=== PATIENT | female | born 1950 | race Caucasian/White ===

== ENCOUNTER → 2018-07-11 | Outpatient (CLI) | payer MEDICARE, OTHER ==
[~2018-07-11] MED LIST: HYDR-3870 PO; NITR-65 PO; PHEN-640 PO; TAMS0.4C98 PO
--- NOTE | 2018-07-11 17:10 | Diagnostic Imaging Report ---
INDICATION: Right flank pain and left ureteral stone. TIME OF EXAM: 2:20 PM No prior studies are available for comparison. FINDINGS: Calcific density overlies the mid left renal shadow measuring 6 mm. No radiopaque calculi are seen overlying the right kidney. No definite calculi within the expected course of the ureters is seen. Bowel gas pattern is unremarkable. IMPRESSION: Findings suggestive of left renal calculus. Dictated by: Dictated on workstation # [id number]
== END ==
LOC: RAD 13:42
PROVIDERS: ATTEND Urology
DX: N20.1 Calculus of ureter (principal)
CPT/HCPCS: 74018

== ENCOUNTER 2018-07-15 05:46 | Outpatient (CLI) | payer MEDICARE, OTHER ==
[~2018-07-15] VITALS: Ht 177.8 cm; Wt 125.6 kg
== END 2018-07-15 15:22 | disposition home or self-care (01) ==
LOC: PREOP 05:46
PROVIDERS: ATTEND Urology
DX: Z01.818 Encounter for other preprocedural examination (principal)

== ENCOUNTER 2018-07-17 07:53 | Day surgery (SDC) | payer MEDICARE, OTHER ==
[~2018-07-17] VITALS: Ht 177.8 cm; Wt 125.6 kg
[2018-07-17] MEDS ORDERED: LACTATED RINGERS 1,000 ML IV PRN (08:04)
[2018-07-17 08:15] VITALS: BP 132/76
[2018-07-17] MEDS ORDERED: CATHETER FLUSH 10 ML SYR IV PRN (08:15)
[2018-07-17] MEDS ORDERED: cefTRIAXone FOR IV USE 1,000 MG in NS (IVPB) 50 ML IV ONE (08:15)
--- NOTE | 2018-07-17 08:23 | Progress Note-Pre Operative ---
Pre-Operative Progress Note H&P Reviewed The H&P was reviewed, patient examined and no changes noted. Date Seen by Provider: Jul 17, 2018 Time Seen by Provider: 08:22 Date H&P Reviewed: Jul 17, 2018 Time H&P Reviewed: 08:22 Pre-Operative Diagnosis: RT URETERAL STONE ALFREDO AKERS MD Jul 17, 2018 8:23 am
--- NOTE | 2018-07-17 08:27 | Diagnostic Imaging Report ---
INDICATION: Right ureteral stone. TECHNIQUE: Single supine view of the abdomen at 8:35 AM. CORRELATION STUDY: 07/11/2018. FINDINGS: An approximately 5 mm stone projects over the mid to inferior pole of the left kidney. No definitive calcification over the right renal silhouette or along the expected course of either ureter. Somewhat smudge-like densities in the left hemipelvis are unchanged. The bowel gas pattern appears nonobstructive. Advanced degenerative change of the lower lumbar spine and bilateral hips. IMPRESSION: Findings suspect for stable calcification over the left renal silhouette. Dictated by: Dictated on workstation # [id number]
[2018-07-17] MEDS ORDERED: DEXAMETHASONE 10 MG/ML (DECADRON) 1 ML VIAL ONE (09:13)
[2018-07-17] MEDS ORDERED: MIDAZOLAM 2 MG/2 ML (VERSED) VIAL ONE (09:13)
[2018-07-17] MEDS ORDERED: LIDOCAINE PF 2% 5 ML (XYLOCAINE) VIAL ONE ×2 (09:13→10:39)
[2018-07-17] MEDS ORDERED: fentaNYL INJECTION 100 MCG/2 ML AMP ONE (09:13)
[2018-07-17] MEDS ORDERED: proPOfol 200 MG/20 ML (DIPRIVAN) VIAL IV ONE (09:13)
[2018-07-17] MEDS ORDERED: ONDANSETRON 4 MG/2 ML (SDV) Z0FRAN ONE (09:13)
[2018-07-17] MEDS ORDERED: KETOROLAC 30 MG/ML VIAL ONE (09:19)
[2018-07-17] MEDS ORDERED: FUROSEMIDE 40 MG/4 ML INJ (LASIX) ONE (09:19)
--- NOTE | 2018-07-17 11:25 | Progress Note-Post Operative ---
Post-Operative Progess Note Surgeon (s)/Citrix Lead (s) Surgeon ALFREDO AKERS MD Citrix Lead: NONE Pre-Operative Diagnosis RT URETERAL STONE Post-Operative Diagnosis RT DISTAL URETERAL STONE AND CYSTOCELE Procedure & Operative Findings Date of Procedure 07/17/18 Procedure Performed/Findings CYSTOSCOPY, RT URETEROSCOPY WITH STONE LITHOTRIPSY AND RETROGRADE UROGRAM Anesthesia Type GENERAL Estimated Blood Loss Estimated blood loss (mL): NONE Specimens/Packing Specimens Removed NONE Packing: NONE ALFREDO AKERS MD Jul 17, 2018 11:25 am
--- NOTE | 2018-07-17 11:26 | Discharge Inst-Urology ---
Discharge Inst-Urology Discharge Medications New, Converted, or Re-newed RX: RX on Chart Patient Instructions/Follow Up Plan Please make appointment to been seen in office in 2 weeks. Increase oral fluids for 48 hours and then as needed. Diet and Activity as tolerated. If questions or concerns contact your physician Or seek help at emergency department. ALFREDO AKERS MD Jul 17, 2018 11:26 am
[2018-07-17] MEDS ORDERED: morphine INJ 10 MG/ML 1ML (SYR OR VIAL) IVP ONE (11:30)
[2018-07-17 12:20] VITALS: BP 100/56
[2018-07-17] MEDS ORDERED: PHEN-640 PO (12:44)
[2018-07-17] MEDS ORDERED: NITR-65 PO (12:44)
[2018-07-17] MEDS ORDERED: TAMS0.4C98 PO (12:44)
[2018-07-17] MEDS ORDERED: HYDR-3870 PO (12:44)
[2018-07-17 12:50] VITALS: BP 114/57
[2018-07-17 13:20] VITALS: BP 119/62
[2018-07-17 13:35] VITALS: BP 119/62
--- NOTE | 2018-07-17 13:42 | OPERATIVE REPORT ---
DATE OF SERVICE: 07/17/2018 PREOPERATIVE DIAGNOSIS: Right proximal ureteral stone. POSTOPERATIVE DIAGNOSES: Right distal ureteral stone and large cystocele. OPERATIONS PERFORMED: Right ureteroscopy with stone lithotripsy and a right retrograde urogram. SURGEON: Delroy Akers MD. ANESTHESIA: General. COMPLICATIONS: None. DESCRIPTION OF PROCEDURE: Under satisfactory general anesthesia, the patient in lithotomy position, genitalia were prepped and draped in the usual sterile fashion. Noted a large cystocele. Cystoscope was introduced in the bladder. The bladder revealed mild trabeculation. Ureteric orifice was normal in shape, size and configuration with clear efflux, sluggish on the right side. Using the foroblique lens, I dilated the right ureteral orifice intramural portion to the level of the stone that was found to be distal to accommodate a 6.9-Greek semirigid ureteroscope. The stone was visualized and broken up with lithoclast. I changed the stone to the mid ureter until breaking up any fragment significant that was seen. I removed the ureteroscope, reinserted the cystoscope, passed a cone tipped catheter in the right ureteral orifice to inject contrast to make sure there was no filling defect and complete emptying of the ureter with no hangup at all. The bladder was evacuated and the cystoscope was removed. The patient tolerated the procedure and anesthesia well and was sent to recovery room in stable condition. Job ID: [id number] DocumentID: [id number] Dictated Date: 07/17/2018 11:28:28 Log Buyer Date: 07/17/2018 13:41:19 Dictated By: DELROY AKERS MD
[2018-07-17] MEDS ORDERED: HYDROcodone/APAP 5 MG/325 MG (LORTAB) TAB PO ONE (13:45)
[2018-07-17] MEDS ORDERED: ONDANSETRON 8 MG (ZOFRAN) ORAL DISSOLVE TAB PO ONE (14:00)
--- NOTE | 2018-07-17 15:22 | Anesthesia-General Post-Op ---
General Patient Condition Mental Status/LOC: Same as Preop Cardiovascular: Satisfactory Nausea/Vomiting: Absent Respiratory: Satisfactory Pain: Controlled Complications: Absent Post Op Complications Complications None Follow Up Care/Instructions Patient Instructions None needed. Anesthesia/Patient Condition Patient Condition Patient was seen after the procedure and she was doing well, no complaints, stable vital signs, no apparent adverse anesthesia problems. VANCE MAGAÑA DO Jul 17, 2018 15:22
== END 2018-07-17 14:06 | disposition home or self-care (01) ==
LOC: SDC 07:53
PROVIDERS: ATTEND Urology
DX: N20.1 Calculus of ureter (principal); N81.10 Cystocele, unspecified; E66.01 Morbid (severe) obesity due to excess calories; Z68.39 Body mass index [BMI] 39.0-39.9, adult
CPT/HCPCS: 74018; 87081

== ENCOUNTER → 2018-09-10 | Outpatient (CLI) | payer MEDICARE, OTHER | LOC: RAD 10:16 | PROVIDERS: ATTEND Internal Medicine Hematology & Oncology | DX: R89.7 Abnormal histological findings in specimens from other organs, systems and tissues (principal); Z53.8 Procedure and treatment not carried out for other reasons ==

== ENCOUNTER 2018-09-23 06:14 | Outpatient (CLI) | payer MEDICARE, OTHER ==
[~2018-09-23] VITALS: Ht 177.8 cm; Wt 125.6 kg
== END 2018-09-23 12:46 | disposition home or self-care (01) ==
LOC: PREOP 06:14
PROVIDERS: ATTEND Surgery
DX: Z01.818 Encounter for other preprocedural examination (principal)

== ENCOUNTER 2018-09-26 06:18 | Day surgery (SDC) | payer MEDICARE, OTHER ==
[~2018-09-26] VITALS: Ht 177.8 cm; Wt 125.6 kg
[2018-09-26] MEDS ORDERED: ceFAZolin 2 GM IV Premixed 50 ML IV ONE (06:30)
[2018-09-26 07:00] VITALS: BP 134/75
[2018-09-26] MEDS: LACTATED RINGERS 1,000 ML IV PRN ×2 (07:15→12:45)
[2018-09-26] MEDS ORDERED: FAMOTIDINE 20MG/2ML IV (PEPCID) IV ONE (07:15)
[2018-09-26] MEDS ORDERED: ONDANSETRON 4 MG/2 ML (SDV) Z0FRAN IV ONE (07:15)
[2018-09-26] MEDS ORDERED: ONDANSETRON 4 MG/2 ML (SDV) Z0FRAN ONE ×3 (07:26→13:23)
[2018-09-26] MEDS ORDERED: ceFAZolin 2 GM IV Premixed 50 ML ONE (07:26)
[2018-09-26] MEDS ORDERED: FAMOTIDINE 20MG/2ML IV (PEPCID) ONE (07:26)
[2018-09-26] MEDS ORDERED: LIDOCAINE 1% INJ 20 ML 20 ML VIAL INJ ONE (08:00)
[2018-09-26] MEDS ORDERED: LIDOCAINE 1% INJ 20 ML 20 ML VIAL ONE (08:05)
--- NOTE | 2018-09-26 11:49 | Progress Note-Pre Operative ---
Pre-Operative Progress Note H&P Reviewed The H&P was reviewed, patient examined and no changes noted. Time Seen by Provider: 10:01 Date H&P Reviewed: Sep 26, 2018 Time H&P Reviewed: 10:02 Pre-Operative Diagnosis: Right breast Invasive Lobular Cancer JANEEN ORNELAS DO Sep 26, 2018 11:49
[2018-09-26] MEDS ORDERED: proPOfol 200 MG/20 ML (DIPRIVAN) VIAL IV ONE ×2 (11:53→12:27)
[2018-09-26] MEDS ORDERED: MIDAZOLAM 2 MG/2 ML (VERSED) VIAL ONE (11:56)
[2018-09-26] MEDS ORDERED: fentaNYL INJECTION 100 MCG/2 ML AMP ONE ×2 (12:00→13:32)
[2018-09-26] MEDS ORDERED: LIDOCAINE/EPI 1%-1:100,000 (XYLOCAINE) 20ML ONE (12:12)
[2018-09-26] MEDS ORDERED: PROPOFOL INJECTION 50 ML IV ONE ×3 (12:27→13:23)
[2018-09-26] MEDS ORDERED: INDIGO CARMINE 8 MG/ML 5 ML AMP ONE (13:13)
--- NOTE | 2018-09-26 13:15 | Progress Note-Post Operative ---
Post-Operative Progess Note Surgeon (s)/Drill Runner Helper (s) Surgeon JANEEN ORNELAS DO Drill Runner Helper: Ehsan Pre-Operative Diagnosis Right breast Invasive Lobular Cancer Post-Operative Diagnosis Same pending pathology Procedure & Operative Findings Date of Procedure 09/26/18 Procedure Performed/Findings Right Partial Mastectomy with needle localization Sentinal lymph node biopsy Injection of indigo carmine Anesthesia Type General with LMA Estimated Blood Loss Estimated blood loss (mL): less than 20ml Specimens/Packing Specimens Removed Left breast cancer with needle loc [place] lymph node JANEEN ORNELAS DO Sep 26, 2018 13:14
[2018-09-26] MEDS ORDERED: ACHD5005 PO (13:16)
--- NOTE | 2018-09-26 13:18 | Discharge Inst-Surgical ---
Discharge Inst-Surgical Depart Medication/Instructions New, Converted or Re-Newed RX: RX Given to Pt/Family Patient Instructions Follow up Appt: Make appointment for 1 week. Instructions: No lifting greater than 10 pounds. No strenuous activity. May shower in 24 hours, no tub bath or soaking. Use incentive spirometer at home as directed. No Smoking Skin/Wound Care: May remove bandages. You need to leave the Dermabond on over incision it will fall off on its own. Symptoms to Report: Appetite Changes, Extremity Discoloration, Numbness/Tingling, Swelling Increased , Bleeding Excessive, Eyesight Changes, Pain Increased, Urine Color Change, Constipation(Persistent), Fever over 101 degree F, Pain/Pressure in chest, Urinating Difficulty, Cough Up/Vomit Blood, Heart Beat Irreg/Pounding, Pain/ Pressure in jaw, Vaginal Bleeding Increase, Cramps in feet or legs, Lightheadedness, Pain/Pressure in shoulder, Diarrhea(Persistent), Memory Changes Suddenly, Questions/Concerns, Weight gain consecutive days, Dizziness/ Fainting, Nausea/Vomiting, Shortness of Breath, Weight gain over 2 pounds If questions or concerns contact your physician Or seek help at emergency department. Activity Activity as Tolerated: Yes Activity Instructions: Avoid Stress to Incision Driving Instructions: No Driving/Refer to Dr. Azar Discharge Diet: No Restrictions Diet After 24 Hours: Clear Liquid if Nauseous If Any Problems/Questions/Issu: Contact Your Physician, Go to Emergency Room Skin/Wound Care Infection Signs and Symptoms: Increased Redness, Foul Odor of Wound, Increased Drainage, Skin Itchy or Has a Rash, Increased Swelling, Temperature Above 101 F Wound Care Comment: Wear a compressive sports bra all day (24 hours) for next week at least, except to shower Bathing Instructions: Shower Stitches/[place]/Dermabond Dis: Dermabond Ice Pack: Ice On and Off Site (as needed if it helps pain) JANEEN ORNELAS DO Sep 26, 2018 13:18
[2018-09-26] MEDS ORDERED: DEXAMETHASONE 10 MG/ML (DECADRON) 1 ML VIAL ONE (13:23)
[2018-09-26] MEDS ORDERED: KETOROLAC 30 MG/ML VIAL ONE (13:32)
[2018-09-26] MEDS ORDERED: HYDROmorphone 2 MG/ML VIAL (DILAUDID) ONE (13:50)
[2018-09-26] MEDS ORDERED: ONDANSETRON 4 MG/2 ML (SDV) Z0FRAN IVP PRN (14:00)
[2018-09-26] MEDS ORDERED: KETOROLAC 30 MG/ML VIAL IVP ONE (14:00)
[2018-09-26] MEDS ORDERED: HYDROmorphone 2 MG/ML VIAL (DILAUDID) IV ONE (14:00)
[2018-09-26] MEDS ORDERED: fentaNYL INJECTION 100 MCG/2 ML AMP IVP ONE (14:00)
[2018-09-26 14:35] VITALS: BP 108/64
--- NOTE | 2018-09-26 15:04 | Anesthesia-General Post-Op ---
General Patient Condition Cardiovascular: Satisfactory Nausea/Vomiting: Absent Respiratory: Satisfactory Pain: Controlled Complications: Absent Post Op Complications Complications None Follow Up Care/Instructions Patient Instructions None needed. Anesthesia/Patient Condition Patient Condition Patient is doing well, no complaints, stable vital signs, no apparent adverse anesthesia problems. No complications reported per nursing. [place] [facility] [place] Yes ARIANA GOYAL CRNA Sep 26, 2018 15:04
[2018-09-26 15:05] VITALS: BP 110/47
[2018-09-26 15:35] VITALS: BP 106/60
[2018-09-26 15:40] VITALS: BP 106/60
--- NOTE | 2018-09-26 18:14 | Diagnostic Imaging Report ---
INDICATION: Right breast carcinoma. Patient presents for lymphoscintigraphy. TECHNIQUE: A total of 1.0 mCi of filtered sulfur colloid was injected in four separate aliquots in a periareolar distribution in the right breast. Imaging was then performed. FINDINGS: Imaging demonstrates activity at the injection sites. There is also two nodular regions of uptake in the right axilla consistent with sentinel nodes.. These were marked on the patient's skin. IMPRESSION: Right breast lymphoscintigraphy, as described. Dictated by: Dictated on workstation # [id number]
--- NOTE | 2018-09-26 19:07 | Diagnostic Imaging Report ---
INDICATION: Right breast carcinoma. Patient presents for ultrasound-guided hookwire placement. Patient was brought to the procedure room, placed on table in the supine position. Ultrasound imaging of the right right breast was performed to evaluate appropriate entry site. The right breast was then prepped and draped in the usual sterile fashion. Small amount of 1% lidocaine was utilized for local anesthesia. Localizing needle was advanced from a lateral approach and placed through the irregular hypoechoic lesion at the 12 o'clock retroareolar location. Hookwire was deployed and the needle was removed. The patient tolerated the procedure well and left the department in stable condition. IMPRESSION: Successful ultrasound-guided hookwire placement through a lesion at the 12 o'clock retroareolar location of the right breast. Dictated by: Dictated on workstation # [id number]
--- NOTE | 2018-09-26 19:17 | Diagnostic Imaging Report ---
INDICATION: Patient status post right needle localization procedure and lumpectomy Specimen radiograph was submitted. Within the specimen is the localizer wire as well as the marker clip and spiculated lesion. IMPRESSION: Spiculated lesion, wire and clip are located within the specimen. Dictated by: Dictated on workstation # [id number]
--- NOTE | 2018-09-26 19:35 | Diagnostic Imaging Report ---
INDICATION: Bilateral breast nodules. Study was performed for a second-look due to outside MRI. Right breast: Outside MRI described an enhancing nodule at the 10-11 o'clock location of the right breast, zone B. There is a circumscribed ovoid hypoechoic nodule at the 11 o'clock location, 2 cm from the nipple, measuring 8 mm x 3 mm x 10 mm. This has fairly benign features. The previously noted irregular density or mass at the 12 o'clock retroareolar location is again noted, measuring approximately 8 mm. No other abnormality is detected. Left breast: Second-look was recommended at the 1 o'clock, 4 o'clock and retroareolar locations. At the 1 o'clock location there is a 6 mm hypoechoic circumscribed nodule, 1 cm from the nipple, which may represent a tiny cyst. At the 4 o'clock location, 3 cm from the nipple, there are several tiny cysts 2-3 mm in size. At the retroareolar location, there is an apparent cluster of cysts versus benign nodule, measuring approximately 9 mm. No suspicious abnormality is seen in the left breast. IMPRESSION: Benign-appearing nodules are identified in bilateral breasts with the exception of the irregular known carcinoma at the 12 o'clock retroareolar location. This lesion is scheduled to be surgically removed today. Followup bilateral breast ultrasound in six months to further evaluate the additional benign-appearing nodules is recommended to show continued stability. ACR BI-RADS Category 3: Probably benign findings. Result letter will be mailed to the patient. Note: At least 10% of breast cancer is not imaged by mammography. Dictated by: Dictated on workstation # [id number]
--- NOTE | 2018-09-26 20:57 | Diagnostic Imaging Report ---
INDICATION: Right breast carcinoma. Patient is status post needle localization procedure. EXAMINATION: 2D, CC and MLO mammography of the right breast was performed. FINDINGS: A localizer hookwire enters laterally and appears to be appropriately positioned in the retroareolar right breast adjacent to the marker clip and appears to pass through the area of spiculation. IMPRESSION: Satisfactory hookwire placement. Dictated by: Dictated on workstation # [id number]
--- NOTE | 2018-09-27 01:45 | OPERATIVE REPORT ---
DATE OF SERVICE: 09/26/18 PREOPERATIVE DIAGNOSIS: Right breast lobular invasive cancer. POSTOPERATIVE DIAGNOSIS: Right breast lobular invasive cancer, pending pathology. PROCEDURES: 1. Right partial mastectomy with needle localization. 2. [place] lymph node biopsy. 3. Injection of blue dye. SURGEON: Janeen Webster DO. REFERRAL AGENT: Javed Moser DO. ANESTHESIA: General endotracheal tube. BLOOD LOSS: Less than 20 mL. FLUIDS: Per anesthesia. SPECIMENS: 1. Portion of right breast. 2. [place] lymph node. INDICATION FOR PROCEDURE: The patient is a 68-year-old female who unfortunately had a breast biopsy performed, which showed invasive lobular cancer in the right upper outer quadrant, needed a partial mastectomy and sentinel node biopsy. FINDINGS: The patient preoperatively needle localization done with a nuclear medicine scan of the radioactive dye that was placed, two lymph nodes seen. She had partial mastectomy sent to pathology and 2 lymph nodes sent to pathology as well. PROCEDURE NOTE: Preoperatively, patient was sent to radiology to have a needle localization done. They marked the site of the previous clip and biopsy. She also had injection of radioactive material and a nuclear medicine scan to find 2 hot lymph nodes. They were marked on the breast. Both of one that was most superior was also like midclavicular line. Once this was done, she was then brought to the operating room. She was placed on table in supine position, sterilely prepped and draped in normal fashion. Prior to prepping and draping, I injected with indigo carmine blue dye at the 12, 3, 6, and 9 o'clock positions around the areola and then massaged for 5 minutes. Once this was done, she was prepped and draped. Needle came in at about the 9 o'clock position, but the hook and tip of the needle the area of cancer was at roughly 12 o'clock retroareolar. I elected to make an incision right along the 11:00 radial line first infiltrating with local along this incision and then around the breast in a regional block then made an incision with #15 blade, carried down through the skin into subcutaneous tissue and deepened down to subcutaneous tissue with Bovie electrocautery down and then going just retroareolar able to palpate an area that felt like the mass and then grasped this with an Allis and then start dissecting around it. I was able to find the needle and then pulled the needle into the incision and then dissected around the needle and this mass resected this area and block, placing a stitch superiorly and anteriorly along basically this ball of tissue, probably basically the 9:00 clock position and then the needle coming out about the 6:00 clock position. This was all sent to pathology. Prior to making the first incision, had done a radioactive count at the injection site and it was 3740. Once this mass out, dissected down into the axilla from the same incision, dissecting down to go under the pectoralis muscle, did an in vivo count and found a lymph node that was 4127 in vivo looked like it might have been a little bit blue able to grasp this with a Willian and then dissect around this. It was very deep into the axilla and under the muscle, pulled this out and ex-vivo got a count of 6910. Placed the probe back into the axillary space and only found some background scatter radioactive counts. Nothing higher than 100, could not find any other hot lymph node, but did find one other node and sent this with pathology as well. It was in the same area as the previous one was performed actually looked like it was just below this one in the same lymphatic chain. Once this was removed, copiously irrigated with sterile water. Hemostasis obtained using Bovie electrocautery. I elected to close the deep tissue closing first the deep tissue with a 3-0 Vicryl and closer to the skin with 3-0 Vicryl interrupted sutures and then closed the skin with a running 4-0 undyed Monocryl subcuticular stitch. Area was cleaned and dried and pressure dressing and then Hermann bandage placed. The patient tolerated the procedure and was sent to recovery room in stable condition. Did get a call back, the partial mastectomy specimen did contain the clip and all of the needle looked like the specimen was obtained. Dr. Moser assisted in this case helping to identify anatomy, helped to close the incision as well as retracting for visualization. Job ID: [id number] DocumentID: [id number] Dictated Date: 09/26/2018 19:33:45 Tank Farm Attendant Date: 09/27/2018 01:44:53 Dictated By: JANEEN WEBSTER DO MTDAmita
== END 2018-09-26 15:40 | disposition home or self-care (01) ==
LOC: CARD 06:18 → SDC 15:40
PROVIDERS: ATTEND Surgery
DX: C50.411 Malignant neoplasm of upper-outer quadrant of right female breast (principal); E66.9 Obesity, unspecified; Z68.39 Body mass index [BMI] 39.0-39.9, adult
CPT/HCPCS: 19285; 76098; 78195; 87081; 94664

== ENCOUNTER 2018-11-07 05:41 | Outpatient (CLI) | payer MEDICARE, OTHER ==
[~2018-11-07] VITALS: Ht 177.8 cm; Wt 125.6 kg
[~2018-11-07 05:41] MED LIST changes: +ACHD5005 PO
== END 2018-11-07 13:56 | disposition home or self-care (01) ==
LOC: PREOP 05:41
PROVIDERS: ATTEND Surgery
DX: Z01.818 Encounter for other preprocedural examination (principal)

== ENCOUNTER 2018-11-11 11:39 | Day surgery (SDC) | payer MEDICARE, OTHER ==
[~2018-11-11] VITALS: Ht 177.8 cm; Wt 125.6 kg
[2018-11-11 12:00] VITALS: BP 139/82
[2018-11-11] MEDS ORDERED: ceFAZolin 2 GM IV Premixed 50 ML IV ONE (12:00)
[2018-11-11] MEDS: LACTATED RINGERS 1,000 ML IV PRN ×2 (12:11→13:50)
[2018-11-11] MEDS ORDERED: LIDOCAINE/EPI 1%-1:100,000 (XYLOCAINE) 20ML ONE (12:13)
[2018-11-11] MEDS ORDERED: BUPIVACAINE 0.5% 30 ML (SENSORCAINE) VIAL ONE (12:13)
[2018-11-11] MEDS ORDERED: 0.9% SODIUM CHLORIDE PF INJ 20 ML VIAL ONE (12:14)
[2018-11-11] MEDS ORDERED: HEParin (CENTRAL IV FLUSH) 500 UNIT/5 ML SYR ONE (12:14)
--- NOTE | 2018-11-11 12:52 | Progress Note-Pre Operative ---
Pre-Operative Progress Note H&P Reviewed The H&P was reviewed, patient examined and no changes noted. Time Seen by Provider: 12:47 Date H&P Reviewed: Nov 11, 2018 Time H&P Reviewed: 12:48 Pre-Operative Diagnosis: Venous Insufficiency, Breast CA JANEEN ORNELAS DO Nov 11, 2018 12:52
[2018-11-11] MEDS ORDERED: proPOfol 200 MG/20 ML (DIPRIVAN) VIAL IV ONE (13:06)
[2018-11-11] MEDS ORDERED: LACTATED RINGERS 1,000 ML IV ONE (13:06)
[2018-11-11] MEDS ORDERED: ONDANSETRON 4 MG/2 ML (SDV) Z0FRAN ONE ×2 (13:06→13:07)
[2018-11-11] MEDS ORDERED: fentaNYL INJECTION 100 MCG/2 ML AMP ONE (13:07)
[2018-11-11] MEDS ORDERED: MIDAZOLAM 2 MG/2 ML (VERSED) VIAL ONE (13:07)
[2018-11-11] MEDS ORDERED: FAMOTIDINE 20MG/2ML IV (PEPCID) ONE (13:08)
[2018-11-11] MEDS ORDERED: ONDANSETRON 4 MG/2 ML (SDV) Z0FRAN IVP ONE (13:30)
[2018-11-11] MEDS ORDERED: FAMOTIDINE 20MG/2ML IV (PEPCID) IVP ONE (13:30)
[2018-11-11 13:55] VITALS: BP 147/76
[2018-11-11] MEDS ORDERED: LIDOCAINE PF 2% 5 ML (XYLOCAINE) VIAL ONE (14:06)
--- NOTE | 2018-11-11 14:12 | Progress Note-Post Operative ---
Post-Operative Progess Note Surgeon (s)/Mortgage Lender (s) Surgeon JANEEN ORNELAS DO Mortgage Lender: none Pre-Operative Diagnosis Venous Insufficiency, Breast CA Post-Operative Diagnosis Same Procedure & Operative Findings Date of Procedure 11/11/18 Procedure Performed/Findings Symone-cath insertion Anesthesia Type LMA Estimated Blood Loss Estimated blood loss (mL): <5ml Specimens/Packing Specimens Removed none JANEEN ORNELAS DO Nov 11, 2018 14:12
[2018-11-11] MEDS ORDERED: ACHD5005 PO (14:15)
--- NOTE | 2018-11-11 14:16 | Discharge Inst-Surgical ---
Discharge Inst-Surgical Depart Medication/Instructions New, Converted or Re-Newed RX: RX Given to Pt/Family Patient Instructions Follow up Appt: Make appointment for 1 week. [phone] Instructions: No lifting greater than 20 pounds. No strenuous activity. May shower in 24 hours, no tub bath or soaking. Use incentive spirometer at home as directed. No Smoking Skin/Wound Care: May remove bandages in am. You need to leave the Dermabond on incision it will fall off on it's own. Symptoms to Report: Appetite Changes, Extremity Discoloration, Numbness/Tingling, Swelling Increased , Bleeding Excessive, Eyesight Changes, Pain Increased, Urine Color Change, Constipation(Persistent), Fever over 101 degree F, Pain/Pressure in chest, Urinating Difficulty, Cough Up/Vomit Blood, Heart Beat Irreg/Pounding, Pain/ Pressure in jaw, Cramps in feet or legs, Lightheadedness, Pain/Pressure in shoulder, Diarrhea(Persistent), Memory Changes Suddenly, Questions/Concerns, Weight gain consecutive days, Dizziness/Fainting, Nausea/Vomiting, Shortness of Breath, Weight gain over 2 pounds If questions or concerns contact your physician Or seek help at emergency department. Activity Activity Instructions: Avoid Stress to Incision Driving Instructions: No Driving/Refer to Dr. Azar Discharge Diet: No Restrictions Diet After 24 Hours: Clear Liquid if Nauseous If Any Problems/Questions/Issu: Contact Your Physician, Go to Emergency Room Skin/Wound Care Infection Signs and Symptoms: Increased Redness, Foul Odor of Wound, Increased Drainage, Skin Itchy or Has a Rash, Increased Swelling, Temperature Above 101 F Bathing Instructions: Shower Ice Pack: Ice On and Off Site JANEEN ORNELAS DO Nov 11, 2018 14:16
[2018-11-11] MEDS ORDERED: morphine INJ 10 MG/ML 1ML (SYR OR VIAL) IVP ONE (14:30)
[2018-11-11] MEDS ORDERED: ONDANSETRON 4 MG/2 ML (SDV) Z0FRAN IVP PRN (14:30)
[2018-11-11] MEDS ORDERED: MEPERIDINE (DEMEROL) INJ 50 MG/ML IVP ONE (14:30)
--- NOTE | 2018-11-11 14:44 | Diagnostic Imaging Report ---
Indication: Fluoroscopy during port placement. Fluoroscopy was provided for Dr. Webster during port placement. 7 seconds of fluoroscopy was utilized. Images demonstrate a left subclavian port. Tip appears to overlie the right atrium. Impression: Fluoroscopy for port placement. Dictated by: Dictated on workstation # [id number]
--- NOTE | 2018-11-11 14:45 | Diagnostic Imaging Report ---
Indication: Left chest wall port placement. Time of exam: 2:34 PM Left subclavian chest wall port has tip overlying the SVC right atrial junction. No pneumothorax is seen. Lungs are clear. Impression: Port placement, as described. Dictated by: Dictated on workstation # [id number]
[2018-11-11 15:40] VITALS: BP 151/88
[2018-11-11 16:10] VITALS: BP 145/63
[2018-11-11 16:12] VITALS: BP 145/63
--- NOTE | 2018-11-12 02:53 | OPERATIVE REPORT ---
DATE OF SERVICE: PREOPERATIVE DIAGNOSES: 1. Breast cancer. 2. Venous insufficiency. POSTOPERATIVE DIAGNOSES: 1. Breast cancer. 2. Venous insufficiency. PROCEDURE: Port-A-Cath insertion left anterior chest wall, left subclavian vein. SURGEON: Sohail Webster DO. AUTOMATIC DISPENSER MECHANIC: None. ANESTHESIA: General endotracheal tube. BLOOD LOSS: Less than 5 mL. SPECIMENS: None. FLUIDS: Per anesthesia. POSTOPERATIVE CONDITION: Stable. INDICATION FOR PROCEDURE: The patient is a 68-year-old female who unfortunately recently diagnosed with breast cancer and needs port for chemotherapy as well as venous insufficiency. FINDINGS: The patient had a port placed in left anterior chest wall, left subclavian vein. PROCEDURE NOTE: After informed consent was obtained, the patient was brought to the operating room, placed on the table in supine position. She was sterilely prepped and draped in normal fashion. Local lidocaine was used to infiltrate the left anterior chest wall as well as towards the left clavicle and towards the left subclavian vein. Then, used an 18-gauge fine needle with negative inspiration advanced the needle under the left clavicle, cannulated the vein on the first attempt. Good flash of blood, removed the syringe, placed a guidewire down the needle using Seldinger technique, it went in easily. Checked with fluoroscopy, it was in the superior vena cava. At this point, then removed the needle, clamped the guidewire in place with a hemostat and then made an incision in the left anterior chest wall with #15 blade, carried down through the skin into subcutaneous tissue, then deepened down to subcutaneous tissue with Bovie electrocautery, creating a pocket with electrocautery as well as blunt dissection. Then, along the wire, made a stab incision with a #11 blade and then tunneled from the stab incision into the pocket and then over the guidewire placed the dilator using Seldinger technique. Checked with fluoroscopy, it was in good position, removed the inner portion of the dilator sheath as well as the guidewire and then placed the catheter down the dilator sheath, it went in easily. Checked fluoroscopy, it was in good position. Cut off portion of the catheter and then attached the catheter to the port. Port was then placed into the pocket. I placed a 3-0 Prolene suture to tie this down so did flip, accessed the port with a Najera needle. Good flash of blood and then easily flushed with saline and then another good flash of blood and then flushed with 2 mL of heparin. Got another fluoroscopy shot, did not appear to be any kink in the catheter and port. At this point, then closed the incision closing the subcutaneous tissue with 3-0 Vicryl, 2 interrupted sutures, closed the skin with 4-0 undyed Monocryl with 3 interrupted subcuticular stitches and one single 4-0 undyed Monocryl subcuticular stitch at the stab incision site. It was clean and dry. Dermabond placed as well as dressing. The patient then transferred to recovery room in stable condition. Sponge, instrument and needle count correct at the end of the case. Job ID: [id number] DocumentID: [id number] Dictated Date: 11/11/2018 14:11:20 Inspector Filters Date: 11/12/2018 02:53:01 Dictated By: SOHAIL WEBSTER DO
== END 2018-11-11 16:12 | disposition home or self-care (01) ==
LOC: SDC 11:39
PROVIDERS: ATTEND Surgery
DX: I87.2 Venous insufficiency (chronic) (peripheral) (principal); C50.411 Malignant neoplasm of upper-outer quadrant of right female breast; Z11.2 Encounter for screening for other bacterial diseases; E66.9 Obesity, unspecified; Z68.39 Body mass index [BMI] 39.0-39.9, adult
CPT/HCPCS: 71045; 87081

== ENCOUNTER → 2018-11-19 | Outpatient (CLI) | payer MEDICARE, OTHER ==
[~2018-11-19] MED LIST changes: +CATHETER FLUSH 10 ML SYR IV PRN; +HEParin (CENTRAL IV FLUSH) 500 UNIT/5 ML SYR ONE
--- NOTE | 2018-11-19 16:25 | Diagnostic Imaging Report ---
INDICATION: Malignant neoplasm of the right breast. TECHNIQUE: The patient was administered 33 mCi of technetium 99m pertechnetate labeled to the patient's red blood cells and gated cardiac imaging was performed. FINDINGS: The left ventricular ejection fraction is calculated to be 59%. IMPRESSION: Normal left ventricular ejection fraction of 59%. Dictated by: Dictated on workstation # [id number]
== END ==
LOC: CARD 13:37
PROVIDERS: ATTEND Internal Medicine Hematology & Oncology
DX: Z01.810 Encounter for preprocedural cardiovascular examination (principal); C50.411 Malignant neoplasm of upper-outer quadrant of right female breast
CPT/HCPCS: 78472

== ENCOUNTER 2018-12-04 10:18 | Outpatient (RCR) | payer MEDICARE, OTHER ==
[2018-09-10 10:19] LABS: BASOPHILS % (AUTO) 0 % (0-10); EOSINOPHILS # (AUTO) 0.2 10^3/uL (0.0-0.3); EOSINOPHILS % (AUTO) 3 % (0-10); HEMATOCRIT 43 % (35-52); HEMOGLOBIN 14.4 G/DL (11.5-16.0); LYMPHOCYTES # (AUTO) 1.8 X 10^3 (1.0-4.0); LYMPHOCYTES % (AUTO) 32 % (12-44); MEAN CORPUSCULAR HEMOGLOBIN 31 PG (25-34); MEAN CORPUSCULAR HGB CONC 34 G/DL (32-36); MEAN CORPUSCULAR VOLUME 91 FL (80-99); MEAN PLATELET VOLUME 10.1 FL (7.4-10.4); MONOCYTES # (AUTO) 0.4 X 10^3 (0.0-1.0); MONOCYTES % (AUTO) 7 % (0-12); NEUTROPHILS # (AUTO) 3.2 X 10^3 (1.8-7.8); NEUTROPHILS % (AUTO) 58 % (42-75); PLATELET COUNT 260 10^3/uL (130-400); RED CELL DISTRIBUTION WIDTH 14.2 % (10.0-14.5); WHITE BLOOD COUNT 5.5 10^3/uL (4.3-11.0)
[2018-09-10 10:44] LABS: CHLORIDE 110 MMOL/L (98-107); POTASSIUM 3.9 MMOL/L (3.6-5.0); SODIUM 145 MMOL/L (135-145)
[2018-09-10 10:45] LABS: ALANINE AMINOTRANSFERASE 17 U/L (0-55); ALKALINE PHOSPHATASE 104 U/L (40-136); BILIRUBIN,TOTAL 0.7 MG/DL (0.1-1.0); BUN/CREATININE RATIO 15; CALCIUM 9.5 MG/DL (8.5-10.1); CARBON DIOXIDE 24 MMOL/L (21-32); CREATININE SERUM 0.73 MG/DL (0.60-1.30); GFR ESTIMATED > 60; GLUCOSE 96 MG/DL (70-105); TOTAL PROTEIN 7.7 GM/DL (6.4-8.2)
[2018-11-21 12:38] LABS: BASOPHILS % (AUTO) 0 % (0-10); EOSINOPHILS # (AUTO) 0.2 10^3/uL (0.0-0.3); EOSINOPHILS % (AUTO) 4 % (0-10); HEMATOCRIT 41 % (35-52); HEMOGLOBIN 13.6 G/DL (11.5-16.0); LYMPHOCYTES # (AUTO) 1.6 X 10^3 (1.0-4.0); LYMPHOCYTES % (AUTO) 26 % (12-44); MEAN CORPUSCULAR HEMOGLOBIN 30 PG (25-34); MEAN CORPUSCULAR HGB CONC 33 G/DL (32-36); MEAN CORPUSCULAR VOLUME 91 FL (80-99); MEAN PLATELET VOLUME 10.3 FL (7.4-10.4); MONOCYTES # (AUTO) 0.5 X 10^3 (0.0-1.0); MONOCYTES % (AUTO) 8 % (0-12); NEUTROPHILS # (AUTO) 3.8 X 10^3 (1.8-7.8); NEUTROPHILS % (AUTO) 62 % (42-75); PLATELET COUNT 226 10^3/uL (130-400); RED CELL DISTRIBUTION WIDTH 13.8 % (10.0-14.5); WHITE BLOOD COUNT 6.2 10^3/uL (4.3-11.0)
[2018-11-21 12:55] LABS: ALANINE AMINOTRANSFERASE 19 U/L (0-55); ALBUMIN 3.9 GM/DL (3.2-4.5); ALKALINE PHOSPHATASE 99 U/L (40-136); BILIRUBIN,TOTAL 0.5 MG/DL (0.1-1.0); BUN/CREATININE RATIO 14; CALCIUM 9.2 MG/DL (8.5-10.1); CARBON DIOXIDE 25 MMOL/L (21-32); CHLORIDE 111 MMOL/L (98-107); CREATININE SERUM 0.69 MG/DL (0.60-1.30); GFR ESTIMATED > 60; GLUCOSE 91 MG/DL (70-105); POTASSIUM 3.9 MMOL/L (3.6-5.0); SODIUM 142 MMOL/L (135-145); TOTAL PROTEIN 7.2 GM/DL (6.4-8.2)
[2018-11-27 09:55] LABS: BASOPHILS % (AUTO) 0 % (0-10); EOSINOPHILS # (AUTO) 0.1 10^3/uL (0.0-0.3); EOSINOPHILS % (AUTO) 2 % (0-10); HEMATOCRIT 37 % (35-52); HEMOGLOBIN 12.5 G/DL (11.5-16.0); LYMPHOCYTES # (AUTO) 0.9 X 10^3 (1.0-4.0); LYMPHOCYTES % (AUTO) 16 % (12-44); MEAN CORPUSCULAR HEMOGLOBIN 31 PG (25-34); MEAN CORPUSCULAR HGB CONC 33 G/DL (32-36); MEAN CORPUSCULAR VOLUME 91 FL (80-99); MEAN PLATELET VOLUME 10.2 FL (7.4-10.4); MONOCYTES % (AUTO) 1 % (0-12); NEUTROPHILS # (AUTO) 4.4 X 10^3 (1.8-7.8); NEUTROPHILS % (AUTO) 80 % (42-75); PLATELET COUNT 157 10^3/uL (130-400); WHITE BLOOD COUNT 5.4 10^3/uL (4.3-11.0)
[2018-11-27 10:13] LABS: BUN/CREATININE RATIO 20; CALCIUM 8.9 MG/DL (8.5-10.1); CARBON DIOXIDE 27 MMOL/L (21-32); CHLORIDE 107 MMOL/L (98-107); CREATININE SERUM 0.75 MG/DL (0.60-1.30); GFR ESTIMATED > 60; GLUCOSE 100 MG/DL (70-105); POTASSIUM 3.5 MMOL/L (3.6-5.0); SODIUM 141 MMOL/L (135-145)
[~2018-12-04] VITALS: Ht 177.8 cm; Wt 126.6 kg
[~2018-12-04 10:18] MED LIST changes: -CATHETER FLUSH 10 ML SYR IV PRN; +CYCLOPHOSPHAMIDE INJECTION 1,000 MG, CYCLOPHOSPHAMIDE INJECTION 500 MG in NS (IVPB) CAN... IV SCH; +DOXORUBICIN HCL IV SCH; +FOSAPREPITANT DIMEGLUMINE 150 MG in NS (IVPB) CANCER CENTER ONLY 150 ML IV SCH; -HEParin (CENTRAL IV FLUSH) 500 UNIT/5 ML SYR ONE; +NS IV 1000 ML (CANCER CTR) IV SCH; +NS IV SCH; +PALONOSETRON HCL 0.25 MG, DEXAMETHASONE INJECTION 10 MG in NS (IVPB) CANCER CENTER 50 ML IV SCH
[2018-12-04 10:31] LABS: BASOPHILS % (AUTO) 2 % (0-10); EOSINOPHILS # (AUTO) 0.1 10^3/uL (0.0-0.3); EOSINOPHILS % (AUTO) 3 % (0-10); HEMATOCRIT 39 % (35-52); HEMOGLOBIN 12.9 G/DL (11.5-16.0); LYMPHOCYTES % (AUTO) 65 % (12-44); MEAN CORPUSCULAR HEMOGLOBIN 30 PG (25-34); MEAN CORPUSCULAR HGB CONC 33 G/DL (32-36); MEAN CORPUSCULAR VOLUME 91 FL (80-99); MEAN PLATELET VOLUME 9.5 FL (7.4-10.4); MONOCYTES # (AUTO) 0.4 X 10^3 (0.0-1.0); MONOCYTES % (AUTO) 28 % (0-12); NEUTROPHILS % (AUTO) 2 % (42-75); PLATELET COUNT 170 10^3/uL (130-400); RED CELL DISTRIBUTION WIDTH 13.2 % (10.0-14.5); WHITE BLOOD COUNT 1.5 10^3/uL (4.3-11.0)
[2018-12-04 10:54] LABS: BUN/CREATININE RATIO 12; CARBON DIOXIDE 25 MMOL/L (21-32); CHLORIDE 110 MMOL/L (98-107); CREATININE SERUM 0.75 MG/DL (0.60-1.30); GFR ESTIMATED > 60; GLUCOSE 99 MG/DL (70-105); POTASSIUM 3.5 MMOL/L (3.6-5.0); SODIUM 143 MMOL/L (135-145)
== END 2018-12-05 | disposition home or self-care (01) ==
LOC: ONC 10:18
PROVIDERS: ATTEND Internal Medicine Hematology & Oncology
DX: Z51.11 Encounter for antineoplastic chemotherapy (principal); C50.411 Malignant neoplasm of upper-outer quadrant of right female breast; T75.3XXA Motion sickness, initial encounter; E66.01 Morbid (severe) obesity due to excess calories; Z68.41 Body mass index [BMI] 40.0-44.9, adult; Z17.0 Estrogen receptor positive status [ER+]; Z79.899 Other long term (current) drug therapy
CPT/HCPCS: 36415; 36591; 80048; 80053; 85025; 96367; 96375; 96411; 96413; 99205; 99213; 99214

== ENCOUNTER 2019-03-06 08:45 | Outpatient (RCR) | payer MEDICARE, OTHER ==
[2018-12-11 09:31] LABS: BASOPHILS # (AUTO) 0.1 10^3/uL (0.0-0.1); BASOPHILS % (AUTO) 1 % (0-10); EOSINOPHILS # (AUTO) 0.1 10^3/uL (0.0-0.3); EOSINOPHILS % (AUTO) 1 % (0-10); HEMATOCRIT 39 % (35-52); LYMPHOCYTES # (AUTO) 1.7 X 10^3 (1.0-4.0); LYMPHOCYTES % (AUTO) 28 % (12-44); MEAN CORPUSCULAR HEMOGLOBIN 30 PG (25-34); MEAN CORPUSCULAR HGB CONC 34 G/DL (32-36); MEAN CORPUSCULAR VOLUME 89 FL (80-99); MEAN PLATELET VOLUME 9.2 FL (7.4-10.4); MONOCYTES # (AUTO) 0.8 X 10^3 (0.0-1.0); MONOCYTES % (AUTO) 12 % (0-12); NEUTROPHILS # (AUTO) 3.5 X 10^3 (1.8-7.8); NEUTROPHILS % (AUTO) 57 % (42-75); PLATELET COUNT 373 10^3/uL (130-400); RED CELL DISTRIBUTION WIDTH 13.5 % (10.0-14.5); WHITE BLOOD COUNT 6.1 10^3/uL (4.3-11.0)
[2018-12-11 09:50] LABS: ALANINE AMINOTRANSFERASE 66 U/L (0-55); ALBUMIN 3.7 GM/DL (3.2-4.5); ALKALINE PHOSPHATASE 105 U/L (40-136); BILIRUBIN,TOTAL 0.3 MG/DL (0.1-1.0); BUN/CREATININE RATIO 8; CALCIUM 9.4 MG/DL (8.5-10.1); CARBON DIOXIDE 24 MMOL/L (21-32); CHLORIDE 111 MMOL/L (98-107); CREATININE SERUM 0.74 MG/DL (0.60-1.30); GFR ESTIMATED > 60; GLUCOSE 83 MG/DL (70-105); POTASSIUM 3.8 MMOL/L (3.6-5.0); SODIUM 141 MMOL/L (135-145); TOTAL PROTEIN 6.8 GM/DL (6.4-8.2)
[2018-12-18 10:11] LABS: BASOPHILS % (AUTO) 0 % (0-10); EOSINOPHILS # (AUTO) 0.1 10^3/uL (0.0-0.3); EOSINOPHILS % (AUTO) 3 % (0-10); HEMATOCRIT 36 % (35-52); HEMOGLOBIN 12.1 G/DL (11.5-16.0); LYMPHOCYTES # (AUTO) 0.9 X 10^3 (1.0-4.0); LYMPHOCYTES % (AUTO) 23 % (12-44); MEAN CORPUSCULAR HEMOGLOBIN 30 PG (25-34); MEAN CORPUSCULAR HGB CONC 33 G/DL (32-36); MEAN CORPUSCULAR VOLUME 90 FL (80-99); MEAN PLATELET VOLUME 9.7 FL (7.4-10.4); MONOCYTES % (AUTO) 1 % (0-12); NEUTROPHILS # (AUTO) 2.8 X 10^3 (1.8-7.8); NEUTROPHILS % (AUTO) 73 % (42-75); PLATELET COUNT 197 10^3/uL (130-400); RED CELL DISTRIBUTION WIDTH 13.1 % (10.0-14.5); WHITE BLOOD COUNT 3.9 10^3/uL (4.3-11.0)
[2018-12-18 10:34] LABS: BUN/CREATININE RATIO 20; CALCIUM 9.1 MG/DL (8.5-10.1); CARBON DIOXIDE 29 MMOL/L (21-32); CHLORIDE 106 MMOL/L (98-107); CREATININE SERUM 0.74 MG/DL (0.60-1.30); GFR ESTIMATED > 60; GLUCOSE 94 MG/DL (70-105); POTASSIUM 3.7 MMOL/L (3.6-5.0); SODIUM 143 MMOL/L (135-145)
[2018-12-25 14:35] LABS: BASOPHILS % (AUTO) 2 % (0-10); EOSINOPHILS # (AUTO) 0.1 10^3/uL (0.0-0.3); EOSINOPHILS % (AUTO) 4 % (0-10); HEMATOCRIT 37 % (35-52); HEMOGLOBIN 12.6 G/DL (11.5-16.0); LYMPHOCYTES # (AUTO) 0.9 X 10^3 (1.0-4.0); LYMPHOCYTES % (AUTO) 57 % (12-44); MEAN CORPUSCULAR HEMOGLOBIN 31 PG (25-34); MEAN CORPUSCULAR HGB CONC 34 G/DL (32-36); MEAN CORPUSCULAR VOLUME 90 FL (80-99); MEAN PLATELET VOLUME 9.7 FL (7.4-10.4); MONOCYTES # (AUTO) 0.5 X 10^3 (0.0-1.0); MONOCYTES % (AUTO) 30 % (0-12); NEUTROPHILS # (AUTO) 0.1 X 10^3 (1.8-7.8); NEUTROPHILS % (AUTO) 7 % (42-75); PLATELET COUNT 185 10^3/uL (130-400); RED CELL DISTRIBUTION WIDTH 13.8 % (10.0-14.5); WHITE BLOOD COUNT 1.7 10^3/uL (4.3-11.0)
[2018-12-25 14:50] LABS: BUN/CREATININE RATIO 10; CALCIUM 9.3 MG/DL (8.5-10.1); CARBON DIOXIDE 25 MMOL/L (21-32); CHLORIDE 109 MMOL/L (98-107); GFR ESTIMATED > 60; GLUCOSE 93 MG/DL (70-105); POTASSIUM 3.9 MMOL/L (3.6-5.0); SODIUM 143 MMOL/L (135-145)
[2019-01-01 09:23] LABS: BASOPHILS % (AUTO) 1 % (0-10); EOSINOPHILS # (AUTO) 0.1 10^3/uL (0.0-0.3); EOSINOPHILS % (AUTO) 1 % (0-10); HEMATOCRIT 38 % (35-52); HEMOGLOBIN 12.8 G/DL (11.5-16.0); LYMPHOCYTES # (AUTO) 1.1 X 10^3 (1.0-4.0); LYMPHOCYTES % (AUTO) 24 % (12-44); MEAN CORPUSCULAR HEMOGLOBIN 30 PG (25-34); MEAN CORPUSCULAR HGB CONC 34 G/DL (32-36); MEAN CORPUSCULAR VOLUME 89 FL (80-99); MEAN PLATELET VOLUME 9.5 FL (7.4-10.4); MONOCYTES # (AUTO) 0.6 X 10^3 (0.0-1.0); MONOCYTES % (AUTO) 14 % (0-12); NEUTROPHILS # (AUTO) 2.7 X 10^3 (1.8-7.8); NEUTROPHILS % (AUTO) 60 % (42-75); PLATELET COUNT 234 10^3/uL (130-400); RED CELL DISTRIBUTION WIDTH 14.2 % (10.0-14.5); WHITE BLOOD COUNT 4.6 10^3/uL (4.3-11.0)
[2019-01-01 09:48] LABS: ALANINE AMINOTRANSFERASE 18 U/L (0-55); ALBUMIN 3.8 GM/DL (3.2-4.5); ALKALINE PHOSPHATASE 85 U/L (40-136); BILIRUBIN,TOTAL 0.5 MG/DL (0.1-1.0); BUN/CREATININE RATIO 10; CALCIUM 9.2 MG/DL (8.5-10.1); CARBON DIOXIDE 22 MMOL/L (21-32); CHLORIDE 111 MMOL/L (98-107); CREATININE SERUM 0.73 MG/DL (0.60-1.30); GFR ESTIMATED > 60; GLUCOSE 105 MG/DL (70-105); POTASSIUM 3.7 MMOL/L (3.6-5.0); SODIUM 143 MMOL/L (135-145); TOTAL PROTEIN 6.4 GM/DL (6.4-8.2)
[2019-01-08 14:56] LABS: BASOPHILS % (AUTO) 1 % (0-10); EOSINOPHILS # (AUTO) 0.1 10^3/uL (0.0-0.3); EOSINOPHILS % (AUTO) 3 % (0-10); HEMATOCRIT 36 % (35-52); HEMOGLOBIN 12.2 G/DL (11.5-16.0); LYMPHOCYTES % (AUTO) 26 % (12-44); MEAN CORPUSCULAR HEMOGLOBIN 31 PG (25-34); MEAN CORPUSCULAR HGB CONC 34 G/DL (32-36); MEAN CORPUSCULAR VOLUME 90 FL (80-99); MONOCYTES % (AUTO) 1 % (0-12); NEUTROPHILS # (AUTO) 2.7 X 10^3 (1.8-7.8); NEUTROPHILS % (AUTO) 70 % (42-75); PLATELET COUNT 175 10^3/uL (130-400); RED CELL DISTRIBUTION WIDTH 13.8 % (10.0-14.5); WHITE BLOOD COUNT 3.9 10^3/uL (4.3-11.0)
[2019-01-08 15:14] LABS: BUN/CREATININE RATIO 16; CALCIUM 9.5 MG/DL (8.5-10.1); CARBON DIOXIDE 27 MMOL/L (21-32); CHLORIDE 107 MMOL/L (98-107); CREATININE SERUM 0.73 MG/DL (0.60-1.30); GFR ESTIMATED > 60; GLUCOSE 108 MG/DL (70-105); POTASSIUM 3.7 MMOL/L (3.6-5.0); SODIUM 141 MMOL/L (135-145)
[2019-01-15 10:11] LABS: BASOPHILS % (AUTO) 2 % (0-10); EOSINOPHILS # (AUTO) 0.1 10^3/uL (0.0-0.3); EOSINOPHILS % (AUTO) 5 % (0-10); HEMATOCRIT 35 % (35-52); HEMOGLOBIN 11.6 G/DL (11.5-16.0); LYMPHOCYTES # (AUTO) 0.8 X 10^3 (1.0-4.0); LYMPHOCYTES % (AUTO) 63 % (12-44); MEAN CORPUSCULAR HEMOGLOBIN 30 PG (25-34); MEAN CORPUSCULAR HGB CONC 33 G/DL (32-36); MEAN CORPUSCULAR VOLUME 90 FL (80-99); MEAN PLATELET VOLUME 9.8 FL (7.4-10.4); MONOCYTES # (AUTO) 0.3 X 10^3 (0.0-1.0); MONOCYTES % (AUTO) 26 % (0-12); NEUTROPHILS # (AUTO) 0.1 X 10^3 (1.8-7.8); NEUTROPHILS % (AUTO) 4 % (42-75); PLATELET COUNT 197 10^3/uL (130-400); RED CELL DISTRIBUTION WIDTH 14.4 % (10.0-14.5)
[2019-01-15 10:13] LABS: WHITE BLOOD COUNT 1.3 10^3/uL (4.3-11.0)
[2019-01-15 10:23] LABS: BUN/CREATININE RATIO 9; CALCIUM 9.2 MG/DL (8.5-10.1); CARBON DIOXIDE 26 MMOL/L (21-32); CHLORIDE 110 MMOL/L (98-107); CREATININE SERUM 0.69 MG/DL (0.60-1.30); GFR ESTIMATED > 60; GLUCOSE 106 MG/DL (70-105); POTASSIUM 3.4 MMOL/L (3.6-5.0); SODIUM 142 MMOL/L (135-145)
[2019-01-22 09:19] LABS: BASOPHILS % (AUTO) 0 % (0-10); EOSINOPHILS # (AUTO) 0.1 10^3/uL (0.0-0.3); EOSINOPHILS % (AUTO) 2 % (0-10); HEMATOCRIT 35 % (35-52); HEMOGLOBIN 11.5 G/DL (11.5-16.0); LYMPHOCYTES # (AUTO) 0.8 X 10^3 (1.0-4.0); LYMPHOCYTES % (AUTO) 18 % (12-44); MEAN CORPUSCULAR HEMOGLOBIN 30 PG (25-34); MEAN CORPUSCULAR HGB CONC 33 G/DL (32-36); MEAN CORPUSCULAR VOLUME 91 FL (80-99); MEAN PLATELET VOLUME 9.3 FL (7.4-10.4); MONOCYTES # (AUTO) 0.5 X 10^3 (0.0-1.0); MONOCYTES % (AUTO) 12 % (0-12); NEUTROPHILS # (AUTO) 3.2 X 10^3 (1.8-7.8); NEUTROPHILS % (AUTO) 69 % (42-75); PLATELET COUNT 275 10^3/uL (130-400); WHITE BLOOD COUNT 4.7 10^3/uL (4.3-11.0)
[2019-01-22 09:37] LABS: ALANINE AMINOTRANSFERASE 24 U/L (0-55); ALBUMIN 3.5 GM/DL (3.2-4.5); ALKALINE PHOSPHATASE 81 U/L (40-136); BILIRUBIN,TOTAL 0.4 MG/DL (0.1-1.0); BUN/CREATININE RATIO 9; CARBON DIOXIDE 22 MMOL/L (21-32); CHLORIDE 112 MMOL/L (98-107); CREATININE SERUM 0.76 MG/DL (0.60-1.30); GFR ESTIMATED > 60; GLUCOSE 134 MG/DL (70-105); POTASSIUM 3.5 MMOL/L (3.6-5.0); SODIUM 143 MMOL/L (135-145); TOTAL PROTEIN 6.1 GM/DL (6.4-8.2)
[2019-01-29 11:03] LABS: BASOPHILS % (AUTO) 0 % (0-10); EOSINOPHILS # (AUTO) 0.1 10^3/uL (0.0-0.3); EOSINOPHILS % (AUTO) 3 % (0-10); HEMATOCRIT 34 % (35-52); HEMOGLOBIN 11.2 G/DL (11.5-16.0); LYMPHOCYTES # (AUTO) 0.7 X 10^3 (1.0-4.0); LYMPHOCYTES % (AUTO) 21 % (12-44); MEAN CORPUSCULAR HEMOGLOBIN 30 PG (25-34); MEAN CORPUSCULAR HGB CONC 33 G/DL (32-36); MEAN CORPUSCULAR VOLUME 90 FL (80-99); MEAN PLATELET VOLUME 9.4 FL (7.4-10.4); MONOCYTES % (AUTO) 1 % (0-12); NEUTROPHILS # (AUTO) 2.6 X 10^3 (1.8-7.8); NEUTROPHILS % (AUTO) 75 % (42-75); PLATELET COUNT 174 10^3/uL (130-400); RED CELL DISTRIBUTION WIDTH 14.4 % (10.0-14.5); WHITE BLOOD COUNT 3.4 10^3/uL (4.3-11.0)
[2019-01-29 11:23] LABS: BUN/CREATININE RATIO 15; CALCIUM 9.5 MG/DL (8.5-10.1); CARBON DIOXIDE 27 MMOL/L (21-32); CHLORIDE 107 MMOL/L (98-107); CREATININE SERUM 0.65 MG/DL (0.60-1.30); GFR ESTIMATED > 60; GLUCOSE 96 MG/DL (70-105); POTASSIUM 3.9 MMOL/L (3.6-5.0); SODIUM 142 MMOL/L (135-145)
[2019-02-05 09:51] LABS: BASOPHILS % (AUTO) 2 % (0-10); EOSINOPHILS # (AUTO) 0.1 10^3/uL (0.0-0.3); EOSINOPHILS % (AUTO) 5 % (0-10); HEMATOCRIT 36 % (35-52); HEMOGLOBIN 11.5 G/DL (11.5-16.0); LYMPHOCYTES # (AUTO) 0.7 X 10^3 (1.0-4.0); LYMPHOCYTES % (AUTO) 53 % (12-44); MEAN CORPUSCULAR HEMOGLOBIN 30 PG (25-34); MEAN CORPUSCULAR HGB CONC 32 G/DL (32-36); MEAN CORPUSCULAR VOLUME 92 FL (80-99); MEAN PLATELET VOLUME 9.9 FL (7.4-10.4); MONOCYTES # (AUTO) 0.4 X 10^3 (0.0-1.0); MONOCYTES % (AUTO) 31 % (0-12); NEUTROPHILS # (AUTO) 0.1 X 10^3 (1.8-7.8); NEUTROPHILS % (AUTO) 9 % (42-75); PLATELET COUNT 170 10^3/uL (130-400); RED CELL DISTRIBUTION WIDTH 15.3 % (10.0-14.5)
[2019-02-05 09:52] LABS: WHITE BLOOD COUNT 1.3 10^3/uL (4.3-11.0)
[2019-02-05 10:02] LABS: BUN/CREATININE RATIO 10; CALCIUM 9.4 MG/DL (8.5-10.1); CARBON DIOXIDE 24 MMOL/L (21-32); CHLORIDE 110 MMOL/L (98-107); CREATININE SERUM 0.71 MG/DL (0.60-1.30); GFR ESTIMATED > 60; GLUCOSE 101 MG/DL (70-105); SODIUM 143 MMOL/L (135-145)
[2019-02-12 09:33] LABS: BASOPHILS % (AUTO) 1 % (0-10); EOSINOPHILS # (AUTO) 0.1 10^3/uL (0.0-0.3); EOSINOPHILS % (AUTO) 2 % (0-10); HEMATOCRIT 37 % (35-52); HEMOGLOBIN 12.3 G/DL (11.5-16.0); LYMPHOCYTES # (AUTO) 1.1 X 10^3 (1.0-4.0); LYMPHOCYTES % (AUTO) 22 % (12-44); MEAN CORPUSCULAR HEMOGLOBIN 30 PG (25-34); MEAN CORPUSCULAR HGB CONC 33 G/DL (32-36); MEAN CORPUSCULAR VOLUME 91 FL (80-99); MEAN PLATELET VOLUME 9.5 FL (7.4-10.4); MONOCYTES # (AUTO) 0.6 X 10^3 (0.0-1.0); MONOCYTES % (AUTO) 14 % (0-12); NEUTROPHILS # (AUTO) 2.9 X 10^3 (1.8-7.8); NEUTROPHILS % (AUTO) 61 % (42-75); PLATELET COUNT 259 10^3/uL (130-400); RED CELL DISTRIBUTION WIDTH 15.1 % (10.0-14.5); WHITE BLOOD COUNT 4.7 10^3/uL (4.3-11.0)
[2019-02-12 09:59] LABS: ALANINE AMINOTRANSFERASE 15 U/L (0-55); ALBUMIN 3.8 GM/DL (3.2-4.5); ALKALINE PHOSPHATASE 81 U/L (40-136); BILIRUBIN,TOTAL 0.4 MG/DL (0.1-1.0); BUN/CREATININE RATIO 8; CALCIUM 9.8 MG/DL (8.5-10.1); CARBON DIOXIDE 26 MMOL/L (21-32); CHLORIDE 108 MMOL/L (98-107); CREATININE SERUM 0.73 MG/DL (0.60-1.30); GFR ESTIMATED > 60; GLUCOSE 119 MG/DL (70-105); POTASSIUM 3.7 MMOL/L (3.6-5.0); SODIUM 142 MMOL/L (135-145); TOTAL PROTEIN 6.6 GM/DL (6.4-8.2)
[2019-02-27 09:14] LABS: BASOPHILS % (AUTO) 0 % (0-10); EOSINOPHILS % (AUTO) 0 % (0-10); HEMATOCRIT 37 % (35-52); HEMOGLOBIN 12.5 G/DL (11.5-16.0); LYMPHOCYTES # (AUTO) 0.7 X 10^3 (1.0-4.0); LYMPHOCYTES % (AUTO) 14 % (12-44); MEAN CORPUSCULAR HEMOGLOBIN 31 PG (25-34); MEAN CORPUSCULAR HGB CONC 34 G/DL (32-36); MEAN CORPUSCULAR VOLUME 90 FL (80-99); MONOCYTES % (AUTO) 1 % (0-12); NEUTROPHILS # (AUTO) 4.4 X 10^3 (1.8-7.8); NEUTROPHILS % (AUTO) 86 % (42-75); PLATELET COUNT 223 10^3/uL (130-400); WHITE BLOOD COUNT 5.2 10^3/uL (4.3-11.0)
[2019-02-27 09:47] LABS: BUN/CREATININE RATIO 13; CALCIUM 9.6 MG/DL (8.5-10.1); CARBON DIOXIDE 18 MMOL/L (21-32); CHLORIDE 110 MMOL/L (98-107); CREATININE SERUM 0.77 MG/DL (0.60-1.30); GFR ESTIMATED > 60; GLUCOSE 248 MG/DL (70-105); SODIUM 142 MMOL/L (135-145)
[~2019-03-06] VITALS: Ht 177.8 cm; Wt 125.2 kg
[~2019-03-06 08:45] MED LIST changes: +CYCLOPHOSPHAMIDE IV SCH; +FAMOTIDINE 20MG/2ML IV (CANCER CTR) IV SCH; +[UNRECOGNIZED DRUG - OTHER] IV SCH; +diphenhydrAMINE 25 MG TAB (BENADRYL) CANCER CENTER PO SCH; +diphenhydrAMINE 50 MG/ML INJ (CANCER CENTER) IV PRN; +diphenhydrAMINE 50 MG/ML INJ (CANCER CENTER) ONE
[2019-03-06 09:00] LABS: BASOPHILS % (AUTO) 0 % (0-10); EOSINOPHILS % (AUTO) 0 % (0-10); HEMATOCRIT 37 % (35-52); HEMOGLOBIN 12.5 G/DL (11.5-16.0); LYMPHOCYTES # (AUTO) 0.8 X 10^3 (1.0-4.0); LYMPHOCYTES % (AUTO) 26 % (12-44); MEAN CORPUSCULAR HEMOGLOBIN 31 PG (25-34); MEAN CORPUSCULAR HGB CONC 34 G/DL (32-36); MEAN CORPUSCULAR VOLUME 90 FL (80-99); MEAN PLATELET VOLUME 9.5 FL (7.4-10.4); MONOCYTES % (AUTO) 1 % (0-12); NEUTROPHILS # (AUTO) 2.2 X 10^3 (1.8-7.8); NEUTROPHILS % (AUTO) 72 % (42-75); PLATELET COUNT 269 10^3/uL (130-400); RED CELL DISTRIBUTION WIDTH 14.9 % (10.0-14.5)
[2019-03-06 09:18] LABS: BUN/CREATININE RATIO 12; CALCIUM 9.7 MG/DL (8.5-10.1); CARBON DIOXIDE 22 MMOL/L (21-32); CHLORIDE 109 MMOL/L (98-107); CREATININE SERUM 0.73 MG/DL (0.60-1.30); GFR ESTIMATED > 60; GLUCOSE 177 MG/DL (70-105); POTASSIUM 3.9 MMOL/L (3.6-5.0); SODIUM 139 MMOL/L (135-145)
== END 2019-03-11 | disposition home or self-care (01) ==
LOC: ONC 08:45
PROVIDERS: ATTEND Internal Medicine Hematology & Oncology
DX: Z51.11 Encounter for antineoplastic chemotherapy (principal); C50.311 Malignant neoplasm of lower-inner quadrant of right female breast; C50.411 Malignant neoplasm of upper-outer quadrant of right female breast; I87.2 Venous insufficiency (chronic) (peripheral); E66.01 Morbid (severe) obesity due to excess calories; Z68.39 Body mass index [BMI] 39.0-39.9, adult
CPT/HCPCS: 36415; 36591; 80048; 80053; 85025; 96367; 96375; 96411; 96413; 99213

== ENCOUNTER → 2019-06-11 | Outpatient (RCR) | payer MEDICARE, OTHER ==
[2019-03-13 09:03] LABS: BASOPHILS % (AUTO) 0 % (0-10); EOSINOPHILS % (AUTO) 0 % (0-10); HEMATOCRIT 36 % (35-52); LYMPHOCYTES # (AUTO) 0.7 X 10^3 (1.0-4.0); LYMPHOCYTES % (AUTO) 29 % (12-44); MEAN CORPUSCULAR HEMOGLOBIN 31 PG (25-34); MEAN CORPUSCULAR HGB CONC 34 G/DL (32-36); MEAN CORPUSCULAR VOLUME 91 FL (80-99); MEAN PLATELET VOLUME 9.7 FL (7.4-10.4); MONOCYTES % (AUTO) 2 % (0-12); NEUTROPHILS # (AUTO) 1.8 X 10^3 (1.8-7.8); NEUTROPHILS % (AUTO) 70 % (42-75); PLATELET COUNT 260 10^3/uL (130-400); RED CELL DISTRIBUTION WIDTH 14.9 % (10.0-14.5); WHITE BLOOD COUNT 2.6 10^3/uL (4.3-11.0)
[2019-03-13 09:21] LABS: ALANINE AMINOTRANSFERASE 23 U/L (0-55); ALBUMIN 3.9 GM/DL (3.2-4.5); ALKALINE PHOSPHATASE 104 U/L (40-136); BILIRUBIN,TOTAL 0.5 MG/DL (0.1-1.0); BUN/CREATININE RATIO 14; CALCIUM 9.7 MG/DL (8.5-10.1); CARBON DIOXIDE 19 MMOL/L (21-32); CHLORIDE 110 MMOL/L (98-107); CREATININE SERUM 0.76 MG/DL (0.60-1.30); GFR ESTIMATED > 60; GLUCOSE 183 MG/DL (70-105); SODIUM 142 MMOL/L (135-145)
[2019-03-20 09:07] LABS: BASOPHILS % (AUTO) 0 % (0-10); EOSINOPHILS # (AUTO) 0.1 10^3/uL (0.0-0.3); EOSINOPHILS % (AUTO) 2 % (0-10); HEMATOCRIT 36 % (35-52); LYMPHOCYTES # (AUTO) 0.7 X 10^3 (1.0-4.0); LYMPHOCYTES % (AUTO) 29 % (12-44); MEAN CORPUSCULAR HEMOGLOBIN 31 PG (25-34); MEAN CORPUSCULAR HGB CONC 34 G/DL (32-36); MEAN CORPUSCULAR VOLUME 92 FL (80-99); MEAN PLATELET VOLUME 9.5 FL (7.4-10.4); MONOCYTES # (AUTO) 0.1 X 10^3 (0.0-1.0); MONOCYTES % (AUTO) 2 % (0-12); NEUTROPHILS # (AUTO) 1.6 X 10^3 (1.8-7.8); NEUTROPHILS % (AUTO) 66 % (42-75); PLATELET COUNT 236 10^3/uL (130-400); RED CELL DISTRIBUTION WIDTH 15.1 % (10.0-14.5); WHITE BLOOD COUNT 2.5 10^3/uL (4.3-11.0)
[2019-03-20 09:22] LABS: BUN/CREATININE RATIO 10; CALCIUM 9.6 MG/DL (8.5-10.1); CARBON DIOXIDE 21 MMOL/L (21-32); CHLORIDE 108 MMOL/L (98-107); CREATININE SERUM 0.79 MG/DL (0.60-1.30); GFR ESTIMATED > 60; GLUCOSE 185 MG/DL (70-105); POTASSIUM 4.1 MMOL/L (3.6-5.0); SODIUM 139 MMOL/L (135-145)
[2019-03-27 09:00] LABS: BASOPHILS % (AUTO) 0 % (0-10); EOSINOPHILS % (AUTO) 0 % (0-10); HEMATOCRIT 37 % (35-52); HEMOGLOBIN 12.4 G/DL (11.5-16.0); LYMPHOCYTES # (AUTO) 0.8 X 10^3 (1.0-4.0); LYMPHOCYTES % (AUTO) 25 % (12-44); MEAN CORPUSCULAR HEMOGLOBIN 30 PG (25-34); MEAN CORPUSCULAR HGB CONC 33 G/DL (32-36); MEAN CORPUSCULAR VOLUME 90 FL (80-99); MEAN PLATELET VOLUME 9.5 FL (7.4-10.4); MONOCYTES # (AUTO) 0.1 X 10^3 (0.0-1.0); MONOCYTES % (AUTO) 2 % (0-12); NEUTROPHILS # (AUTO) 2.3 X 10^3 (1.8-7.8); NEUTROPHILS % (AUTO) 73 % (42-75); PLATELET COUNT 292 10^3/uL (130-400); RED CELL DISTRIBUTION WIDTH 15.6 % (10.0-14.5); WHITE BLOOD COUNT 3.1 10^3/uL (4.3-11.0)
[2019-03-27 09:23] LABS: BUN/CREATININE RATIO 15; CALCIUM 9.9 MG/DL (8.5-10.1); CARBON DIOXIDE 18 MMOL/L (21-32); CHLORIDE 108 MMOL/L (98-107); CREATININE SERUM 0.82 MG/DL (0.60-1.30); GFR ESTIMATED > 60; GLUCOSE 177 MG/DL (70-105); POTASSIUM 4.2 MMOL/L (3.6-5.0); SODIUM 138 MMOL/L (135-145)
[2019-04-03 09:07] LABS: BASOPHILS % (AUTO) 0 % (0-10); EOSINOPHILS # (AUTO) 0.1 10^3/uL (0.0-0.3); EOSINOPHILS % (AUTO) 3 % (0-10); HEMATOCRIT 33 % (35-52); LYMPHOCYTES # (AUTO) 0.8 X 10^3 (1.0-4.0); LYMPHOCYTES % (AUTO) 24 % (12-44); MEAN CORPUSCULAR HEMOGLOBIN 30 PG (25-34); MEAN CORPUSCULAR HGB CONC 33 G/DL (32-36); MEAN CORPUSCULAR VOLUME 91 FL (80-99); MEAN PLATELET VOLUME 9.7 FL (7.4-10.4); MONOCYTES # (AUTO) 0.5 X 10^3 (0.0-1.0); MONOCYTES % (AUTO) 15 % (0-12); NEUTROPHILS % (AUTO) 58 % (42-75); PLATELET COUNT 227 10^3/uL (130-400); RED CELL DISTRIBUTION WIDTH 15.5 % (10.0-14.5); WHITE BLOOD COUNT 3.4 10^3/uL (4.3-11.0)
[2019-04-03 09:32] LABS: ALANINE AMINOTRANSFERASE 15 U/L (0-55); ALBUMIN 3.6 GM/DL (3.2-4.5); ALKALINE PHOSPHATASE 88 U/L (40-136); BILIRUBIN,TOTAL 0.5 MG/DL (0.1-1.0); BUN/CREATININE RATIO 8; CALCIUM 9.2 MG/DL (8.5-10.1); CARBON DIOXIDE 21 MMOL/L (21-32); CHLORIDE 108 MMOL/L (98-107); CREATININE SERUM 0.73 MG/DL (0.60-1.30); GFR ESTIMATED > 60; GLUCOSE 114 MG/DL (70-105); POTASSIUM 3.6 MMOL/L (3.6-5.0); SODIUM 138 MMOL/L (135-145); TOTAL PROTEIN 6.3 GM/DL (6.4-8.2)
[2019-04-24 09:11] LABS: BASOPHILS % (AUTO) 0 % (0-10); EOSINOPHILS # (AUTO) 0.3 10^3/uL (0.0-0.3); EOSINOPHILS % (AUTO) 5 % (0-10); HEMATOCRIT 36 % (35-52); HEMOGLOBIN 11.7 G/DL (11.5-16.0); LYMPHOCYTES # (AUTO) 1.3 X 10^3 (1.0-4.0); LYMPHOCYTES % (AUTO) 22 % (12-44); MEAN CORPUSCULAR HEMOGLOBIN 30 PG (25-34); MEAN CORPUSCULAR HGB CONC 32 G/DL (32-36); MEAN CORPUSCULAR VOLUME 93 FL (80-99); MEAN PLATELET VOLUME 9.4 FL (7.4-10.4); MONOCYTES # (AUTO) 0.6 X 10^3 (0.0-1.0); MONOCYTES % (AUTO) 11 % (0-12); NEUTROPHILS # (AUTO) 3.5 X 10^3 (1.8-7.8); NEUTROPHILS % (AUTO) 61 % (42-75); PLATELET COUNT 217 10^3/uL (130-400); RED CELL DISTRIBUTION WIDTH 16.4 % (10.0-14.5); WHITE BLOOD COUNT 5.8 10^3/uL (4.3-11.0)
[2019-04-24 09:28] LABS: ALANINE AMINOTRANSFERASE 17 U/L (0-55); ALBUMIN 3.7 GM/DL (3.2-4.5); ALKALINE PHOSPHATASE 92 U/L (40-136); BILIRUBIN,TOTAL 0.5 MG/DL (0.1-1.0); BUN/CREATININE RATIO 12; CALCIUM 9.4 MG/DL (8.5-10.1); CARBON DIOXIDE 23 MMOL/L (21-32); CHLORIDE 112 MMOL/L (98-107); CREATININE SERUM 0.66 MG/DL (0.60-1.30); GFR ESTIMATED > 60; GLUCOSE 88 MG/DL (70-105); POTASSIUM 3.7 MMOL/L (3.6-5.0); SODIUM 142 MMOL/L (135-145); TOTAL PROTEIN 6.2 GM/DL (6.4-8.2)
[2019-05-01 09:14] LABS: BASOPHILS % (AUTO) 1 % (0-10); EOSINOPHILS # (AUTO) 0.4 10^3/uL (0.0-0.3); EOSINOPHILS % (AUTO) 7 % (0-10); HEMATOCRIT 37 % (35-52); LYMPHOCYTES # (AUTO) 1.4 X 10^3 (1.0-4.0); LYMPHOCYTES % (AUTO) 24 % (12-44); MEAN CORPUSCULAR HEMOGLOBIN 30 PG (25-34); MEAN CORPUSCULAR HGB CONC 32 G/DL (32-36); MEAN CORPUSCULAR VOLUME 93 FL (80-99); MEAN PLATELET VOLUME 9.9 FL (7.4-10.4); MONOCYTES # (AUTO) 0.4 X 10^3 (0.0-1.0); MONOCYTES % (AUTO) 6 % (0-12); NEUTROPHILS # (AUTO) 3.7 X 10^3 (1.8-7.8); NEUTROPHILS % (AUTO) 63 % (42-75); PLATELET COUNT 236 10^3/uL (130-400); RED CELL DISTRIBUTION WIDTH 16.2 % (10.0-14.5); WHITE BLOOD COUNT 5.9 10^3/uL (4.3-11.0)
[2019-05-01 09:43] LABS: BUN/CREATININE RATIO 9; CALCIUM 9.8 MG/DL (8.5-10.1); CARBON DIOXIDE 21 MMOL/L (21-32); CHLORIDE 110 MMOL/L (98-107); CREATININE SERUM 0.74 MG/DL (0.60-1.30); GFR ESTIMATED > 60; GLUCOSE 114 MG/DL (70-105); POTASSIUM 3.9 MMOL/L (3.6-5.0); SODIUM 142 MMOL/L (135-145)
[2019-05-08 09:23] LABS: BASOPHILS % (AUTO) 0 % (0-10); EOSINOPHILS # (AUTO) 0.2 10^3/uL (0.0-0.3); EOSINOPHILS % (AUTO) 4 % (0-10); HEMATOCRIT 36 % (35-52); HEMOGLOBIN 11.9 G/DL (11.5-16.0); LYMPHOCYTES # (AUTO) 1.4 X 10^3 (1.0-4.0); LYMPHOCYTES % (AUTO) 29 % (12-44); MEAN CORPUSCULAR HEMOGLOBIN 31 PG (25-34); MEAN CORPUSCULAR HGB CONC 33 G/DL (32-36); MEAN CORPUSCULAR VOLUME 94 FL (80-99); MEAN PLATELET VOLUME 9.4 FL (7.4-10.4); MONOCYTES # (AUTO) 0.4 X 10^3 (0.0-1.0); MONOCYTES % (AUTO) 8 % (0-12); NEUTROPHILS # (AUTO) 2.9 X 10^3 (1.8-7.8); NEUTROPHILS % (AUTO) 59 % (42-75); PLATELET COUNT 246 10^3/uL (130-400); RED CELL DISTRIBUTION WIDTH 16.4 % (10.0-14.5); WHITE BLOOD COUNT 4.9 10^3/uL (4.3-11.0)
[2019-05-08 09:43] LABS: BUN/CREATININE RATIO 11; CALCIUM 9.7 MG/DL (8.5-10.1); CARBON DIOXIDE 20 MMOL/L (21-32); CHLORIDE 110 MMOL/L (98-107); GFR ESTIMATED > 60; GLUCOSE 95 MG/DL (70-105); POTASSIUM 4.2 MMOL/L (3.6-5.0); SODIUM 141 MMOL/L (135-145)
[2019-05-15 10:28] LABS: BASOPHILS % (AUTO) 1 % (0-10); EOSINOPHILS # (AUTO) 0.1 10^3/uL (0.0-0.3); EOSINOPHILS % (AUTO) 3 % (0-10); HEMATOCRIT 38 % (35-52); HEMOGLOBIN 12.2 G/DL (11.5-16.0); LYMPHOCYTES # (AUTO) 1.1 X 10^3 (1.0-4.0); LYMPHOCYTES % (AUTO) 27 % (12-44); MEAN CORPUSCULAR HEMOGLOBIN 31 PG (25-34); MEAN CORPUSCULAR HGB CONC 33 G/DL (32-36); MEAN CORPUSCULAR VOLUME 94 FL (80-99); MEAN PLATELET VOLUME 9.6 FL (7.4-10.4); MONOCYTES # (AUTO) 0.4 X 10^3 (0.0-1.0); MONOCYTES % (AUTO) 8 % (0-12); NEUTROPHILS # (AUTO) 2.6 X 10^3 (1.8-7.8); NEUTROPHILS % (AUTO) 62 % (42-75); PLATELET COUNT 254 10^3/uL (130-400); RED CELL DISTRIBUTION WIDTH 16.1 % (10.0-14.5); WHITE BLOOD COUNT 4.3 10^3/uL (4.3-11.0)
[2019-05-15 10:44] LABS: ALANINE AMINOTRANSFERASE 22 U/L (0-55); ALBUMIN 3.7 GM/DL (3.2-4.5); ALKALINE PHOSPHATASE 91 U/L (40-136); BILIRUBIN,TOTAL 0.4 MG/DL (0.1-1.0); BUN/CREATININE RATIO 7; CALCIUM 9.6 MG/DL (8.5-10.1); CARBON DIOXIDE 23 MMOL/L (21-32); CHLORIDE 110 MMOL/L (98-107); GFR ESTIMATED > 60; GLUCOSE 83 MG/DL (70-105); POTASSIUM 3.7 MMOL/L (3.6-5.0); SODIUM 143 MMOL/L (135-145); TOTAL PROTEIN 6.6 GM/DL (6.4-8.2)
[~2019-06-11] VITALS: Ht 177.8 cm; Wt 122.5 kg
[~2019-06-11] MED LIST changes: -CYCLOPHOSPHAMIDE INJECTION 1,000 MG, CYCLOPHOSPHAMIDE INJECTION 500 MG in NS (IVPB) CAN... IV SCH; -CYCLOPHOSPHAMIDE IV SCH; -DOXORUBICIN HCL IV SCH; +ESTROGENS CONJ IV 25 MG/5 ML (PREMARIN) VIAL ONE; -FOSAPREPITANT DIMEGLUMINE 150 MG in NS (IVPB) CANCER CENTER ONLY 150 ML IV SCH; -NS IV SCH; -[UNRECOGNIZED DRUG - OTHER] IV SCH; -diphenhydrAMINE 50 MG/ML INJ (CANCER CENTER) IV PRN; -diphenhydrAMINE 50 MG/ML INJ (CANCER CENTER) ONE
== END | disposition home or self-care (01) ==
LOC: ONC 03-13 08:48
PROVIDERS: ATTEND Internal Medicine Hematology & Oncology
DX: Z51.11 Encounter for antineoplastic chemotherapy (principal); Z51.0 Encounter for antineoplastic radiation therapy; C50.311 Malignant neoplasm of lower-inner quadrant of right female breast; C50.411 Malignant neoplasm of upper-outer quadrant of right female breast; I87.2 Venous insufficiency (chronic) (peripheral); E66.01 Morbid (severe) obesity due to excess calories; Z68.39 Body mass index [BMI] 39.0-39.9, adult
CPT/HCPCS: 36415; 36591; 77290; 77295; 77300; 77334; 77470; 80048; 80053; 85025; 96375; 96413; 99213

== ENCOUNTER → 2019-07-31 | Outpatient (CLI) | payer MEDICARE, OTHER ==
[~2019-07-31] MED LIST changes: -ESTROGENS CONJ IV 25 MG/5 ML (PREMARIN) VIAL ONE; -FAMOTIDINE 20MG/2ML IV (CANCER CTR) IV SCH; -NS IV 1000 ML (CANCER CTR) IV SCH; -PALONOSETRON HCL 0.25 MG, DEXAMETHASONE INJECTION 10 MG in NS (IVPB) CANCER CENTER 50 ML IV SCH; -diphenhydrAMINE 25 MG TAB (BENADRYL) CANCER CENTER PO SCH
--- NOTE | 2019-07-31 14:59 | Diagnostic Imaging Report ---
EXAMINATION: Supine abdomen at 2:53 p.m. INDICATION: Nephrolithiasis. FINDINGS: The previous exam of 07/11/2018 noted a 6 mm calculus overlying the left renal contour. That finding is again evident and no different in size or position. There now appears to be at least one 3 mm calculus overlying the inferior pole of the right kidney. There may be a few other much smaller (1 mm) nonobstructive calculi in this area as well. No other pathological calcification seen. There is no mass or organomegaly. The bowel gas pattern is nonspecific. 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 There is also at least moderate degenerative disc and bony disease at L4-L5. IMPRESSION: There are calculi overlying both renal contours. Most likely, these are intrarenal. There is no evidence for a calculus along the path of the ureters to suggest a ureteral stone. If further study is desired, however, then CT would be recommended. Dictated by: Dictated on workstation # [id number]
== END ==
LOC: RAD 14:38
PROVIDERS: ATTEND Urology
DX: N20.0 Calculus of kidney (principal)
CPT/HCPCS: 74018

== ENCOUNTER 2019-08-06 09:59 | Outpatient (RCR) | payer MEDICARE, OTHER ==
[2019-08-06 10:28] LABS: BASOPHILS % (AUTO) 0 % (0-10); EOSINOPHILS # (AUTO) 0.3 10^3/uL (0.0-0.3); EOSINOPHILS % (AUTO) 4 % (0-10); HEMATOCRIT 41 % (35-52); HEMOGLOBIN 13.6 G/DL (11.5-16.0); LYMPHOCYTES % (AUTO) 32 % (12-44); MEAN CORPUSCULAR HEMOGLOBIN 30 PG (25-34); MEAN CORPUSCULAR HGB CONC 33 G/DL (32-36); MEAN CORPUSCULAR VOLUME 89 FL (80-99); MEAN PLATELET VOLUME 9.4 FL (7.4-10.4); MONOCYTES # (AUTO) 0.4 X 10^3 (0.0-1.0); MONOCYTES % (AUTO) 7 % (0-12); NEUTROPHILS # (AUTO) 3.6 X 10^3 (1.8-7.8); NEUTROPHILS % (AUTO) 57 % (42-75); PLATELET COUNT 202 10^3/uL (130-400); RED CELL DISTRIBUTION WIDTH 14.4 % (10.0-14.5); WHITE BLOOD COUNT 6.3 10^3/uL (4.3-11.0)
[2019-08-06 10:52] LABS: ALANINE AMINOTRANSFERASE 14 U/L (0-55); ALKALINE PHOSPHATASE 126 U/L (40-136); BILIRUBIN,TOTAL 0.7 MG/DL (0.1-1.0); BUN/CREATININE RATIO 10; CALCIUM 9.5 MG/DL (8.5-10.1); CARBON DIOXIDE 23 MMOL/L (21-32); CHLORIDE 111 MMOL/L (98-107); GFR ESTIMATED > 60; GLUCOSE 101 MG/DL (70-105); POTASSIUM 3.8 MMOL/L (3.6-5.0); SODIUM 142 MMOL/L (135-145); TOTAL PROTEIN 7.1 GM/DL (6.4-8.2)
== END 2019-09-10 | disposition home or self-care (01) ==
LOC: ONC 09:59
PROVIDERS: ATTEND Internal Medicine Hematology & Oncology
DX: Z51.0 Encounter for antineoplastic radiation therapy (principal); C50.311 Malignant neoplasm of lower-inner quadrant of right female breast; C50.411 Malignant neoplasm of upper-outer quadrant of right female breast; I87.2 Venous insufficiency (chronic) (peripheral); E66.01 Morbid (severe) obesity due to excess calories; Z68.39 Body mass index [BMI] 39.0-39.9, adult
CPT/HCPCS: 36591; 77307; 77334; 77336; 77417; 80053; 85025

== ENCOUNTER → 2019-08-14 | Outpatient (CLI) | payer MEDICARE, OTHER ==
--- NOTE | 2019-08-15 17:58 | Diagnostic Imaging Report ---
EXAMINATION: Bilateral screening mammogram. INDICATION: Screening. COMPARISON: This study was compared to the prior exam of 09/26/2018 and 08/01/2018. The current study was also evaluated with a Computer Aided Detection (CAD) system. 3-D tomosynthesis was also performed and reviewed. FINDINGS: The previous exam did reveal a spiculated mass in the 12 o'clock position of the right breast. The patient subsequently underwent a lumpectomy on 09/26/2018. To my knowledge, there has been no further imaging of the breast since the lumpectomy. Prior to the lumpectomy, the patient did have an MRI breast exam performed on 09/19/2018. The neoplastic lesion was identified on the MRI exam, and there also appeared to be enhancing nodules in both breasts. A second-look ultrasound examination of both breasts was recommended and performed on 09/26/2018. Several nodules were identified, but they were felt to be benign. On this exam, there are postsurgical changes involving the right breast. There is no sign of recurrent malignancy. There are scattered fibroglandular densities in both breasts, which could obscure a lesion. There are a number of small nodules in each breast as well. These seem similar to the prior exam. There is no primary or secondary sign of malignancy noted. IMPRESSION: 1. There are postsurgical changes involving the right breast consistent with a prior lumpectomy. There is no evidence for recurrent malignancy. A six-month follow-up mammogram of the right breast would be recommended for continued evaluation, however. 2. There is no sign of malignancy involving the left breast. ACR BI-RADS Category 3: Probably benign findings. Result letter will be mailed to the patient. Note: At least 10% of breast cancer is not imaged by mammography. Dictated by: Dictated on workstation # [id number]
== END ==
LOC: RAD 10:28
PROVIDERS: ATTEND Internal Medicine Hematology & Oncology
DX: Z12.31 Encounter for screening mammogram for malignant neoplasm of breast (principal); C50.919 Malignant neoplasm of unspecified site of unspecified female breast; Z98.890 Other specified postprocedural states
CPT/HCPCS: 77067

== ENCOUNTER 2019-11-05 08:39 | Outpatient (RCR) | payer MEDICARE, OTHER ==
[~2019-11-05 08:39] MED LIST changes: -TAMS0.4C98 PO; +TMSL.4C PO
== END 2019-12-11 | disposition home or self-care (01) ==
LOC: ONC 08:39
PROVIDERS: ATTEND Internal Medicine Hematology & Oncology
DX: C50.311 Malignant neoplasm of lower-inner quadrant of right female breast (principal); C50.411 Malignant neoplasm of upper-outer quadrant of right female breast; I87.2 Venous insufficiency (chronic) (peripheral); E66.01 Morbid (severe) obesity due to excess calories; Z68.39 Body mass index [BMI] 39.0-39.9, adult; Z80.3 Family history of malignant neoplasm of breast; Z95.9 Presence of cardiac and vascular implant and graft, unspecified; Z98.890 Other specified postprocedural states; Z45.2 Encounter for adjustment and management of vascular access device
CPT/HCPCS: 96523; 99213

== ENCOUNTER 2020-02-09 08:56 | Outpatient (RCR) | payer MEDICARE, OTHER ==
[2020-02-09] MEDS ORDERED: ALTEPLASE 2 MG (CATHFLO) CANCER CENTER IV ONE (09:45)
== END 2020-04-30 13:04 | disposition home or self-care (01) ==
LOC: ONC 08:56
PROVIDERS: ATTEND Internal Medicine Hematology & Oncology
DX: C50.311 Malignant neoplasm of lower-inner quadrant of right female breast (principal); C50.411 Malignant neoplasm of upper-outer quadrant of right female breast; I87.2 Venous insufficiency (chronic) (peripheral); E66.01 Morbid (severe) obesity due to excess calories; Z68.39 Body mass index [BMI] 39.0-39.9, adult; Z80.3 Family history of malignant neoplasm of breast; Z95.9 Presence of cardiac and vascular implant and graft, unspecified; Z98.890 Other specified postprocedural states
CPT/HCPCS: 36593; G0463

== ENCOUNTER → 2020-02-27 | Outpatient (CLI) | payer MEDICARE, OTHER ==
--- NOTE | 2020-02-27 21:05 | Diagnostic Imaging Report ---
INDICATION: Right breast carcinoma, status post lumpectomy. COMPARISON: Correlation is made with prior mammogram from 08/14/2019 and 08/01/2018. EXAMINATION: Unilateral right 2D and 3D diagnostic mammography was performed with CAD. The current study was also evaluated with a Computer Aided Detection (CAD) system. FINDINGS: Post-lobectomy changes in the right breast are noted. There are some calcifications in the upper aspect of the right breast at posterior depth which appear to be new but have a benign appearance. No mass is seen. Right axilla is unremarkable. IMPRESSION: Status post lumpectomy. No recurrent mass is identified. There are some calcifications in the upper right breast which appear benign. Continued six-month follow-up to confirm stability is recommended. ACR BI-RADS Category 3: Probably benign findings. Result letter will be mailed to the patient. Note: At least 10% of breast cancer is not imaged by mammography. Dictated by: Dictated on workstation # [id number]
== END ==
LOC: RAD 11:58
PROVIDERS: ATTEND Internal Medicine Hematology & Oncology
DX: C50.311 Malignant neoplasm of lower-inner quadrant of right female breast (principal); Z98.890 Other specified postprocedural states

== ENCOUNTER → 2020-05-03 | Outpatient (CLI) | payer MEDICARE, OTHER ==
[2020-05-03 09:55] LABS: BASOPHILS % (AUTO) 0 % (0-10); EOSINOPHILS # (AUTO) 0.3 10^3/uL (0.0-0.3); EOSINOPHILS % (AUTO) 5 % (0-10); HEMATOCRIT 40 % (35-52); HEMOGLOBIN 13.2 G/DL (11.5-16.0); LYMPHOCYTES % (AUTO) 28 % (12-44); MEAN CORPUSCULAR HEMOGLOBIN 30 PG (25-34); MEAN CORPUSCULAR HGB CONC 33 G/DL (32-36); MEAN CORPUSCULAR VOLUME 90 FL (80-99); MEAN PLATELET VOLUME 9.9 FL (7.4-10.4); MONOCYTES # (AUTO) 0.5 X 10^3 (0.0-1.0); MONOCYTES % (AUTO) 7 % (0-12); NEUTROPHILS # (AUTO) 4.2 X 10^3 (1.8-7.8); NEUTROPHILS % (AUTO) 60 % (42-75); PLATELET COUNT 182 10^3/uL (130-400); RED CELL DISTRIBUTION WIDTH 14.1 % (10.0-14.5)
[2020-05-03 10:18] LABS: ALANINE AMINOTRANSFERASE 15 U/L (0-55); ALBUMIN 3.7 GM/DL (3.2-4.5); ALKALINE PHOSPHATASE 106 U/L (40-136); BILIRUBIN,TOTAL 0.7 MG/DL (0.1-1.0); BUN/CREATININE RATIO 14; CALCIUM 9.2 MG/DL (8.5-10.1); CARBON DIOXIDE 24 MMOL/L (21-32); CHLORIDE 111 MMOL/L (98-107); CREATININE SERUM 0.74 MG/DL (0.60-1.30); GFR ESTIMATED > 60; GLUCOSE 96 MG/DL (70-105); POTASSIUM 4.3 MMOL/L (3.6-5.0); SODIUM 142 MMOL/L (135-145); TOTAL PROTEIN 6.8 GM/DL (6.4-8.2)
== END ==
LOC: ONC 09:36
PROVIDERS: ATTEND Internal Medicine Hematology & Oncology
DX: Z85.3 Personal history of malignant neoplasm of breast (principal)
CPT/HCPCS: 80053; 85025; G0463; 36591

== ENCOUNTER 2020-08-18 10:07 | Outpatient (RCR) | payer MEDICARE, OTHER ==
[2020-07-23 10:16] LABS: BASOPHILS % (AUTO) 1 % (0-10); EOSINOPHILS # (AUTO) 0.3 10^3/uL (0.0-0.3); EOSINOPHILS % (AUTO) 5 % (0-10); HEMATOCRIT 40 % (35-52); LYMPHOCYTES # (AUTO) 1.7 10^3/uL (1.0-4.0); LYMPHOCYTES % (AUTO) 29 % (12-44); MEAN CORPUSCULAR HEMOGLOBIN 30 pg (25-34); MEAN CORPUSCULAR HGB CONC 33 g/dL (32-36); MEAN CORPUSCULAR VOLUME 93 fL (80-99); MONOCYTES # (AUTO) 0.5 10^3/uL (0.0-1.0); MONOCYTES % (AUTO) 8 % (0-12); NEUTROPHILS # (AUTO) 3.4 10^3/uL (1.8-7.8); NEUTROPHILS % (AUTO) 57 % (42-75); PLATELET COUNT 177 10^3/uL (130-400)
[2020-07-23 10:37] LABS: ALANINE AMINOTRANSFERASE 13 U/L (0-55); ALBUMIN 3.7 GM/DL (3.2-4.5); ALKALINE PHOSPHATASE 151 U/L (40-136); BILIRUBIN,TOTAL 0.7 MG/DL (0.1-1.0); BUN/CREATININE RATIO 15; CALCIUM 8.9 MG/DL (8.5-10.1); CARBON DIOXIDE 22 MMOL/L (21-32); CHLORIDE 111 MMOL/L (98-107); CREATININE SERUM 0.67 MG/DL (0.60-1.30); GFR ESTIMATED > 60; GLUCOSE 97 MG/DL (70-105); POTASSIUM 4.1 MMOL/L (3.6-5.0); SODIUM 144 MMOL/L (135-145); TOTAL PROTEIN 6.8 GM/DL (6.4-8.2)
[2020-08-18 11:00] LABS: ALANINE AMINOTRANSFERASE 17 U/L (0-55); ALBUMIN 4.1 GM/DL (3.2-4.5); ALKALINE PHOSPHATASE 165 U/L (40-136); BILIRUBIN,TOTAL 0.7 MG/DL (0.1-1.0); BUN/CREATININE RATIO 11; CALCIUM 9.3 MG/DL (8.5-10.1); CARBON DIOXIDE 21 MMOL/L (21-32); CHLORIDE 110 MMOL/L (98-107); CREATININE SERUM 0.79 MG/DL (0.60-1.30); GFR ESTIMATED > 60; GLUCOSE 103 MG/DL (70-105); POTASSIUM 3.8 MMOL/L (3.6-5.0); SODIUM 142 MMOL/L (135-145); TOTAL PROTEIN 7.5 GM/DL (6.4-8.2)
[2020-08-24] MEDS ORDERED: CEPH-507 PO (19:19)
== END 2020-09-15 07:50 | disposition home or self-care (01) ==
LOC: ONC 10:07
PROVIDERS: ATTEND Internal Medicine Hematology & Oncology
DX: C50.311 Malignant neoplasm of lower-inner quadrant of right female breast (principal); E66.01 Morbid (severe) obesity due to excess calories; Z98.890 Other specified postprocedural states; Z95.828 Presence of other vascular implants and grafts; Z80.3 Family history of malignant neoplasm of breast
CPT/HCPCS: 80053; 85025; G0463; 36591

== ENCOUNTER → 2020-08-18 | Outpatient (CLI) | payer MEDICARE, OTHER ==
--- NOTE | 2020-08-18 10:01 | Diagnostic Imaging Report ---
INDICATION: Right breast carcinoma, status post lumpectomy. COMPARISON: 02/27/2020 and 08/14/2019. TECHNIQUE: 2D and 3D bilateral diagnostic mammography was performed with CAD. FINDINGS: Scattered fibroglandular densities are noted bilaterally. Lumpectomy changes in the right breast are noted. There is an increasing cluster of calcifications in the upper and outer aspect of the right breast at posterior depth. The remainder of the breasts is stable. No new mass is seen. A chest wall port hub is located in the left axilla. IMPRESSION: Increasing cluster of microcalcifications in the upper outer right breast at posterior depth. Tissue sampling is recommended. These would be amenable to stereotactic biopsy. ACR BI-RADS Category 4: Suspicious abnormality. Result letter will be mailed to the patient. Note: At least 10% of breast cancer is not imaged by mammography. Dictated by: Dictated on workstation # [id number]
== END ==
LOC: RAD 09:15
PROVIDERS: ATTEND Internal Medicine Hematology & Oncology
DX: C50.311 Malignant neoplasm of lower-inner quadrant of right female breast (principal); Z90.11 Acquired absence of right breast and nipple
CPT/HCPCS: 77066; G0279; 77062

== ENCOUNTER 2020-08-24 18:12 | Emergency (ER) | payer MEDICARE, OTHER ==
[~2020-08-24] VITALS: Ht 170.8 cm; Wt 118.1 kg
--- NOTE | 2020-08-24 18:30 | ED GI ---
General Chief Complaint: Abdominal/GI Problems Stated Complaint: RIGHT SIDE PAIN;RIGHT ABD PAIN;BLOOD IN URINE Source of Information: Patient Exam Limitations: No Limitations History of Present Illness Date Seen by Provider: Aug 24, 2020 Time Seen by Provider: 18:16 Initial Comments The patient presents to the ER by private conveyance from home with chief complaint of 4 days mild intermittent right lower abdomen into her right flank discomfort rated at a 1 out of 10. She says she had to use some ibuprofen for yesterday or the day before but nothing today. She sees some blood in her urine but is not having dysuria. Had a normal bowel movement today with no blood in it constipation. She is being treated post chemotherapy and lumpectomy for a right sided breast cancer. Dr. Rich is her oncologist. She does not have a primary care doctor. She has not been seen for this yet. She does have a history of kidney stone 2 years ago but she says this is nothing similar in terms of pain to her kidney stone. She does not take any other medications or have any other significant medical history. She had her appendix out when she was a teenager. She has no history of hysterectomy, tubal ligation, C-sections etc. Allergies and Home Medications Allergies Coded Allergies: erythromycin base (Verified Allergy, Unknown, NAUSEA, 07/15/18) Home Medications Hydrocodone Bit/Acetaminophen 1 Tab Tab, 1 TAB PO Q6H PRN for PAIN-MODERATE Prescribed by: JANEEN ORNELAS on 11/11/18 [id number] Patient Home Medication List Home Medication List Reviewed: Yes Review of Systems Review of Systems Constitutional: No chills, No fever, No malaise EENTM: No Blurred Vision, No Double Vision Respiratory: Denies Cough, Denies Shortness of Air Cardiovascular: Denies Chest Pain, Denies Edema Gastrointestinal: See HPI, Abdominal Pain; Denies Constipated, Denies Diarrhea, Denies Nausea Genitourinary: Denies Burning, Denies Discharge Musculoskeletal: No back pain, No joint pain Skin: No pruritus, No rash Psychiatric/Neurological: Denies Headache, Denies Numbness All Other Systems Reviewed Negative Unless Noted: Yes Past Ghjwgqw-Zywouo-Zcpeiz Hx Patient Social History Alcohol Use: Denies Use Recreational Drug Use: No Smoking Status: Never a Smoker Recent Foreign Travel: No Contact w/Someone Who Travel: No Recent Hopitalizations: No Seasonal Allergies Seasonal Allergies: Yes (MILD) Past Medical History Surgeries: Yes (KIDNEY STONES) Appendectomy, Breast Respiratory: No Cardiac: No Neurological: No Reproductive Disorders: No Sexually Transmitted Disease: No HIV/AIDS: No Genitourinary: No Kidney Stones Gastrointestinal: No Musculoskeletal: No Endocrine: No HEENT: No Loss of Vision: Bilateral Hearing Impairment: Denies Cancer: Yes Breast What Type of Treatment Did You: Surgical Intervention Psychosocial: No Integumentary: No Blood Disorders: No Adverse Reaction/Blood Tranf: No (N/A) Physical Exam Vital Signs Vital Signs - First Documented 08/24/20 18:16 Temp 36.6 Pulse 102 Resp 18 B/P (MAP) 169/106 (127) Pulse Ox 98 O2 Delivery Room Air Capillary Refill : Height/Weight/BMI Height: 5'10.00" Weight: 277lbs. 0.0oz. [id number]; 39.7 BMI Method: General Appearance: WD/WN, no apparent distress HEENT: PERRL/EOMI, pharynx normal Neck: full range of motion, normal inspection Respiratory: no respiratory distress, no accessory muscle use Cardiovascular: normal peripheral pulses, regular rate, rhythm Gastrointestinal: normal bowel sounds, soft; No guarding; tenderness (suprapubic mild), other (negative for Rovsing or McBurney's point tenderness. Negative for Darden sign or right upper quadrant tenderness with percussion.) Back: normal inspection, no CVA tenderness, no vertebral tenderness Neurologic/Psychiatric: alert, normal mood/affect, oriented x 3 Skin: normal color, warm/dry Progress/Results/Core Measures Results/Orders Lab Results Laboratory Tests Test 08/24/20 18:21 08/24/20 18:36 Range/Units White Blood Count 8.2 4.3-11.0 10^3/uL Red Blood Count 4.98 3.80-5.11 10^6/uL Hemoglobin 15.0 11.5-16.0 g/dL Hematocrit 46 35-52 % Mean Corpuscular Volume 93 80-99 fL Mean Corpuscular Hemoglobin 30 25-34 pg Mean Corpuscular Hemoglobin Concent 32 32-36 g/dL Red Cell Distribution Width 13.4 10.0-14.5 % Platelet Count 245 130-400 10^3/uL Mean Platelet Volume 9.9 9.0-12.2 fL Immature Granulocyte % (Auto) 0 % Neutrophils (%) (Auto) 57 42-75 % Lymphocytes (%) (Auto) 32 12-44 % Monocytes (%) (Auto) 6 0-12 % Eosinophils (%) (Auto) 5 0-10 % Basophils (%) (Auto) 0 0-10 % Neutrophils # (Auto) 4.7 1.8-7.8 10^3/uL Lymphocytes # (Auto) 2.7 1.0-4.0 10^3/uL Monocytes # (Auto) 0.5 0.0-1.0 10^3/uL Eosinophils # (Auto) 0.4 H 0.0-0.3 10^3/uL Basophils # (Auto) 0.0 0.0-0.1 10^3/uL Immature Granulocyte # (Auto) 0.0 0.0-0.1 10^3/uL Sodium Level 143 135-145 MMOL/L Potassium Level 3.7 3.6-5.0 MMOL/L Chloride Level 107 98-107 MMOL/L Carbon Dioxide Level 23 21-32 MMOL/L Anion Gap 13 5-14 MMOL/L Blood Urea Nitrogen 9 7-18 MG/DL Creatinine 0.72 0.60-1.30 MG/DL Estimat Glomerular Filtration Rate > 60 BUN/Creatinine Ratio 13 Glucose Level 93 70-105 MG/DL Calcium Level 9.6 8.5-10.1 MG/DL Corrected Calcium 9.3 8.5-10.1 MG/DL Total Bilirubin 0.7 0.1-1.0 MG/DL Aspartate Amino Transf (AST/SGOT) 20 5-34 U/L Alanine Aminotransferase (ALT/SGPT) 16 0-55 U/L Alkaline Phosphatase 147 H 40-136 U/L Total Protein 8.1 6.4-8.2 GM/DL Albumin 4.4 3.2-4.5 GM/DL Urine Color ERIC H Urine Clarity CLOUDY Urine pH 5.5 5-9 Urine Specific Sherrill >=1.030 1.016-1.022 Urine Protein TRACE H NEGATIVE Urine Glucose (UA) NEGATIVE NEGATIVE Urine Ketones 1+ H NEGATIVE Urine Nitrite NEGATIVE NEGATIVE Urine Bilirubin 1+ H NEGATIVE Urine Urobilinogen 1.0 < = 1.0 MG/DL Urine Leukocyte Esterase TRACE H NEGATIVE Urine RBC (Auto) 3+ H NEGATIVE Urine RBC TNTC H /HPF Urine WBC 0-2 /HPF Urine Crystals PRESENT H /LPF Urine Amorphous Sediment MOD ANGIE URATES H /LPF Urine Bacteria TRACE /HPF Urine Casts NONE /LPF Urine Mucus NEGATIVE /LPF Urine Culture Indicated NO My Orders Orders - LAUREN RODRIGUEZ Ua Culture If Indicated (08/24/20 18:16) Cbc With Automated Diff (08/24/20 18:26) Comprehensive Metabolic Panel (08/24/20 18:26) Ed Iv/Invasive Line Start (08/24/20 18:26) Vital Signs/I&O 08/24/20 18:16 Temp 36.6 Pulse 102 Resp 18 B/P (MAP) 169/106 (127) Pulse Ox 98 O2 Delivery Room Air Progress Progress Note #1: Time: 18:29 Progress Note Suspect UTI. Plan to get a urinalysis and some basic labs. She is in no acute distress and does not want anything for discomfort. Progress Note #2: Time: 19:18 Progress Note Hematuria suspicious for infection. No evidence of new edema or acute tubular necrosis. Unlikely she has developed a new autoimmune disease however we'll have her follow-up outpatient after putting her on a course of antibiotics. Departure Impression Primary Impression: UTI (urinary tract infection) Qualified Codes: N30.01 - Acute cystitis with hematuria Disposition: HOME, SELF-CARE Condition: Stable Departure-Patient Inst. Decision time for Depature: 19:18 Referrals: NO,LOCAL PHYSICIAN (PCP/Family) Primary Care Physician Patient Instructions: Urinary Tract Infection, Adult (DC) Add. Discharge Instructions: Drink plenty of fluids. Keflex one capsule twice a day with food. Follow-up with either your primary care doctor or your oncologist in 4-6 weeks for repeat urinalysis. Return to the nearest ER if you're having significant fever, intractable pain or other worrisome symptoms. All discharge instructions reviewed with patient and/or family. Voiced understanding. Scripts Cephalexin (Keflex) 500 Mg Capsule 500 MG PO TID for 7 Days, #21 CAP 0 Refills Prov: LAUREN RODRIGUEZ 08/24/20 LAUREN RODRIGUEZ Aug 24, 2020 18:29
[2020-08-24 18:40] LABS: ALBUMIN 4.4 GM/DL (3.2-4.5); CHLORIDE 107 MMOL/L (98-107); POTASSIUM 3.7 MMOL/L (3.6-5.0); SODIUM 143 MMOL/L (135-145)
[2020-08-24 18:41] LABS: CALCIUM 9.6 MG/DL (8.5-10.1)
[2020-08-24 18:42] LABS: GLUCOSE 93 MG/DL (70-105); TOTAL PROTEIN 8.1 GM/DL (6.4-8.2)
[2020-08-24 18:43] LABS: CARBON DIOXIDE 23 MMOL/L (21-32)
[2020-08-24 18:43] LABS: CLARITY,URINE CLOUDY; COLOR,URINE AMBER; GLUCOSE, URINE (UA) NEGATIVE (NEGATIVE); KETONES,URINE 1+ (NEGATIVE); LEUKOCYTE ESTERASE ,URINE TRACE (NEGATIVE); NITRITE,URINE NEGATIVE (NEGATIVE); PH,URINE 5.5 (5-9); PROTEIN,URINE TRACE (NEGATIVE)
[2020-08-24 18:44] LABS: BILIRUBIN,TOTAL 0.7 MG/DL (0.1-1.0)
[2020-08-24 18:46] LABS: ALKALINE PHOSPHATASE 147 U/L (40-136); CREATININE SERUM 0.72 MG/DL (0.60-1.30); GFR ESTIMATED > 60
[2020-08-24 18:47] LABS: BUN/CREATININE RATIO 13
[2020-08-24 18:49] LABS: ALANINE AMINOTRANSFERASE 16 U/L (0-55)
[2020-08-24 19:00] LABS: BASOPHILS % (AUTO) 0 % (0-10); EOSINOPHILS # (AUTO) 0.4 10^3/uL (0.0-0.3); EOSINOPHILS % (AUTO) 5 % (0-10); HEMATOCRIT 46 % (35-52); LYMPHOCYTES # (AUTO) 2.7 10^3/uL (1.0-4.0); LYMPHOCYTES % (AUTO) 32 % (12-44); MEAN CORPUSCULAR HEMOGLOBIN 30 pg (25-34); MEAN CORPUSCULAR HGB CONC 32 g/dL (32-36); MEAN CORPUSCULAR VOLUME 93 fL (80-99); MEAN PLATELET VOLUME 9.9 fL (9.0-12.2); MONOCYTES # (AUTO) 0.5 10^3/uL (0.0-1.0); MONOCYTES % (AUTO) 6 % (0-12); NEUTROPHILS # (AUTO) 4.7 10^3/uL (1.8-7.8); NEUTROPHILS % (AUTO) 57 % (42-75); PLATELET COUNT 245 10^3/uL (130-400); WHITE BLOOD COUNT 8.2 10^3/uL (4.3-11.0)
[2020-08-24 19:09] LABS: RBC,URINE TNTC /HPF
[2020-08-24 19:11] LABS: AMORPHOUS SEDIMENT,UR MOD AMOR URATES /LPF; BACTERIA,URINE TRACE /HPF; BILIRUBIN,URINE 1+ (NEGATIVE); WBC,URINE 0-2 /HPF
[2020-08-24] MEDS ORDERED: CEPH-507 PO (19:19)
[2020-08-24 19:30] VITALS: BP 162/94
[2020-08-24] MEDS ORDERED: cefTRIAXone FOR IV USE 1,000 MG in WATER (STERILE) FOR INJECTION 10 ML IV ONE (19:30)
== END 2020-08-24 19:31 | disposition home or self-care (01) ==
LOC: EDUNIT# 18:12 → ER 18:13
DX: N39.0 Urinary tract infection, site not specified (principal); Z85.3 Personal history of malignant neoplasm of breast; Z88.1 Allergy status to other antibiotic agents
CPT/HCPCS: 36415; 80053; 81000; 85025

== ENCOUNTER → 2020-09-06 | Outpatient (CLI) | payer MEDICARE, OTHER ==
[~2020-09-06] VITALS: Ht 177.8 cm; Wt 118.2 kg
[~2020-09-06] MED LIST changes: +CEPH-507 PO; +LIDOCAINE 1% INJ 20 ML 20 ML VIAL INJ ONE; +LIDOCAINE 1% INJ 20 ML 20 ML VIAL ONE
--- NOTE | 2020-09-06 11:39 | Diagnostic Imaging Report ---
Indication: Right breast calcifications. Patient presents for stereotactic biopsy. Patient was brought to the stereotactic suite, placed in a chair in a sitting upright position. The right breast was positioned lateral medial. The calcifications in the posterior upper outer right breast were stereotactically targeted. The lateral right breast was prepped and draped in usual sterile fashion. Small amount of 1% lidocaine utilized for local anesthesia. An 8 gauge needle was advanced and placed with its tip per stereotactic coordinates. A total of 4 core biopsies were obtained with the 8 gauge vacuum-assisted device. Specimen radiograph was obtained demonstrating numerous microcalcifications within sample labeled #3 and 4. The marker clip was then deployed. The needle was removed and hemostasis was obtained using manual compression. Followup LM and exaggerated CC mammography shows the marker clip adjacent to the calcifications of the upper outer right breast posteriorly. All images were viewed on a dedicated workstation. Patient tolerated procedure well and left the department in stable condition. Impression: Successful stereotactic biopsy of calcifications in the upper outer right breast posterior depth. Pathology results are currently pending. Dictated by: Dictated on workstation # [id number]
== END ==
LOC: RAD 10:45
PROVIDERS: ATTEND Internal Medicine Hematology & Oncology
DX: C50.411 Malignant neoplasm of upper-outer quadrant of right female breast (principal)
CPT/HCPCS: 19081; A4648

== ENCOUNTER 2020-09-15 13:50 | Outpatient (RCR) | payer MEDICARE, OTHER ==
[~2020-09-15 13:50] MED LIST changes: -LIDOCAINE 1% INJ 20 ML 20 ML VIAL INJ ONE; -LIDOCAINE 1% INJ 20 ML 20 ML VIAL ONE
[2020-09-15 15:16] LABS: BASOPHILS % (AUTO) 0 % (0-10); EOSINOPHILS # (AUTO) 0.3 10^3/uL (0.0-0.3); EOSINOPHILS % (AUTO) 4 % (0-10); HEMATOCRIT 41 % (35-52); HEMOGLOBIN 13.6 g/dL (11.5-16.0); LYMPHOCYTES # (AUTO) 2.2 10^3/uL (1.0-4.0); LYMPHOCYTES % (AUTO) 31 % (12-44); MEAN CORPUSCULAR HEMOGLOBIN 30 pg (25-34); MEAN CORPUSCULAR HGB CONC 33 g/dL (32-36); MEAN CORPUSCULAR VOLUME 91 fL (80-99); MONOCYTES # (AUTO) 0.5 10^3/uL (0.0-1.0); MONOCYTES % (AUTO) 7 % (0-12); NEUTROPHILS % (AUTO) 57 % (42-75); PLATELET COUNT 200 10^3/uL (130-400); WHITE BLOOD COUNT 6.9 10^3/uL (4.3-11.0)
[2020-09-15 15:35] LABS: ALANINE AMINOTRANSFERASE 16 U/L (0-55); ALBUMIN 3.9 GM/DL (3.2-4.5); ALKALINE PHOSPHATASE 124 U/L (40-136); BILIRUBIN,TOTAL 0.8 MG/DL (0.1-1.0); BUN/CREATININE RATIO 12; CALCIUM 9.2 MG/DL (8.5-10.1); CARBON DIOXIDE 26 MMOL/L (21-32); CHLORIDE 109 MMOL/L (98-107); CREATININE SERUM 0.73 MG/DL (0.60-1.30); GFR ESTIMATED > 60; GLUCOSE 90 MG/DL (70-105); POTASSIUM 3.9 MMOL/L (3.6-5.0); SODIUM 141 MMOL/L (135-145); TOTAL PROTEIN 7.2 GM/DL (6.4-8.2)
== END 2020-10-11 15:40 | disposition home or self-care (01) ==
LOC: ONC 13:50
PROVIDERS: ATTEND Internal Medicine Hematology & Oncology
DX: C50.211 Malignant neoplasm of upper-inner quadrant of right female breast (principal); Z98.890 Other specified postprocedural states; Z79.811 Long term (current) use of aromatase inhibitors
CPT/HCPCS: 80053; 82306; 85025; G0463; 99213

== ENCOUNTER → 2020-09-21 | Outpatient (CLI) | payer MEDICARE, OTHER ==
[~2020-09-21] MED LIST changes: +HOLD METFORMIN - RECEIVED CONTRAST 20 ML VIAL IV SCH; +IOHEXOL 350 MG/ML 100 ML (OMNIPAQUE 350) VIAL IV ONE; +NS 100 ML (IVPB) BAG IV ONE
[2020-09-21] MEDS: CATHETER FLUSH 10 ML SYR IV PRN ×2 (12:06→12:16)
--- NOTE | 2020-09-21 13:35 | Diagnostic Imaging Report ---
PROCEDURE: CT chest and abdomen with contrast. TECHNIQUE: Multiple contiguous axial images were obtained through the chest and abdomen after the administration of intravenous contrast. Auto Exposure Controls were utilized during the CT exam to meet ALARA standards for radiation dose reduction. INDICATION: Carcinoma of the left breast. There are no prior CT examinations available for comparison. The images through the thorax show the heart size is within normal limits. Coronary calcifications are evident. The aorta is not abnormally dilated. There is no sign of a dissection. However there is a defect in one of the pulmonaries to the right lower lobe. This does suggest a pulmonary embolus. There is no other evidence for a pulmonary embolus. The lungs are clear. There is no sign of failure, pneumonia or a pleural effusion to indicate an acute abnormality. There is no mediastinal or hilar adenopathy. The thyroid gland is enlarged and there are low density nodules in both lobes including 1.8 cm nodule in the right lobe.. This appearance may be secondary to multinodular goiter ultrasound would be recommended for further study. There is a Port-A-Cath in the left supraclavicular region. The catheter line however is not visualized in its entirety. The tip of the catheter line may be within the proximal innominate vein. There is no obvious breast mass. The images through the abdomen show that there 3 prominent rounded areas of low density within the liver. The largest of these occupies much of the right lobe of liver and measures 14.0 x 16.2 cm. There are also 2 contiguous low density lesions in the left lobe of the liver. These glomerate size of 6.5 x 11.2 cm. I suspect these findings are secondary to cyst formation. The liver is otherwise unremarkable. The spleen, pancreas, adrenals, kidneys, aorta and inferior vena cava, gallbladder and portal vein are unremarkable for an acute abnormality. There is a 6.5 mm calculus in the midportion of the left kidney. The stomach is not well-distended and consequently difficult to assess. There does appear to be a small hiatal hernia. The images through the lower abdomen show that there is a defect in the anterior abdominal wall just to the right of midline. This defect measures approximately 4.8 cm. Segments of the transverse colon have extended through this defect. There is also some mesenteric fat extending through this defect.. Furthermore along the periphery of this area on the left there is a 7.4 x 10.0 cm soft tissue density. This has Hounsfield units of 20-30 and consequently this may be solid or semisolid in nature. This finding is not visualized in its entirety. I would recommend a CT of the abdomen and pelvis with oral and intravenous contrast be obtained for further study. The bone windows show no sign of an acute fracture. There is a long-standing 50-60% compression deformity of T12. There are also healed slightly displaced fractures of the right 3rd through 6th ribs and the left 5th, 6th and 7th ribs. IMPRESSION: 1. The defect in the pulmonary to the right lung base does suggest pulmonary embolus. There is no acute cardiopulmonary abnormality noted otherwise. There is no acute abnormality of the abdomen either. 2. There is no sign of metastatic disease to the chest or abdomen. 3. The soft tissue density along the herniated mesenteric fat on the left is of uncertain etiology. Considerations and recommendations as above. 4. There are several cysts associated with the liver. The cysts have a generally benign appearance. 5. The thyroid gland is enlarged and there are multiple nodules within each lobe. This may be secondary to multinodular goiter. Thyroid ultrasound exam would be recommended for further study. Results were called to Dr. See. Dictated by: Dictated on workstation # [id number]
--- NOTE | 2020-09-21 20:25 | Diagnostic Imaging Report ---
EXAM: Nuclear medicine bone scan INDICATION: Breast cancer TECHNIQUE: This study was performed following the administration of 26.9 mCi of 99m technetium MDP. Anterior and posterior whole-body images were obtained. COMPARISON: There are no prior nuclear medicine bone scans available for comparison. FINDINGS: There are number of small areas of slightly increased uptake involving the ribs on the left. In reviewing the previous CT chest, abdomen and pelvis exam performed in conjunction with this study, there did appear to be a number of healed rib fractures bilaterally, particularly on the left. There is no intense abnormal uptake to suggest metastatic disease. The CT exam also noted a large ventral hernia. On this study, there is a sizable rounded area of slightly increased activity overlying the lower abdomen and pelvis just to the right of midline. This would correspond to the finding on the CT exam. There is excretion of the radiotracer by the right kidney but there is virtually no excretion of the radiotracer by the left kidney. In reviewing the CT exam however the left kidney did appear to excrete the contrast. Even so, the function of the left kidney may be compromised. If further study is desired, a nuclear medicine renal scan/renogram would be recommended. IMPRESSION: 1. The abnormal uptake involving the ribs, particularly the left ribs is most likely due to prior trauma. There is no intense focus of abnormal uptake to suggest metastatic disease. 2. The large ventral hernia seen on the CT exam is again visualized. 3. There is excretion of the radiotracer by the right kidney but there is virtually no excretion by the left kidney. Consequently, the function of the left kidney may be compromise. Recommendations as above. Dictated by: Dictated on workstation # [id number]
== END ==
LOC: CARD 11:39
PROVIDERS: ATTEND Internal Medicine Hematology & Oncology
DX: C50.219 Malignant neoplasm of upper-inner quadrant of unspecified female breast (principal); K76.89 Other specified diseases of liver; E04.2 Nontoxic multinodular goiter; Z78.0 Asymptomatic menopausal state; Z79.811 Long term (current) use of aromatase inhibitors
CPT/HCPCS: 71260; 74160; 78306; A9503

== ENCOUNTER → 2020-09-28 | Outpatient (CLI) | payer MEDICARE, OTHER ==
[~2020-09-28] MED LIST changes: -HOLD METFORMIN - RECEIVED CONTRAST 20 ML VIAL IV SCH; -IOHEXOL 350 MG/ML 100 ML (OMNIPAQUE 350) VIAL IV ONE; -NS 100 ML (IVPB) BAG IV ONE
--- NOTE | 2020-09-28 14:28 | Diagnostic Imaging Report ---
INDICATION: Postmenopausal screening COMPARISON: Baseline FINDINGS: AP Spine L1-L4: [BMD (g/cm2): 1.400] [T-Score: 1.7] [Z-Score: 2.2] [BMD Previous: NA] [BMD % Change: NA] LT Hip Neck: [BMD (g/cm2): 0.837] [T-Score: -1.4] [Z-Score: -0.6] LT Hip Total: [BMD (g/cm2):0.905] [T-Score:-0.8] [Z-Score: -0.2] [BMD Previous: NA] [BMD % Change: NA] RT Hip Neck: [BMD (g/cm2):0.800] [T-Score:-1.7] [Z-Score:-0.8] RT Hip Total: [BMD (g/cm2):0.946] [T-score:-0.5] [Z-Score:0.1] [BMD Previous:NA] [BMD % Change:NA] *Indicates significant change from prior examination based on 95% confidence level. World Health Organization criteria for BMD interpretation classify patients as Normal (T-score at or above -1.0), Osteopenic (T-score between -1.0 and -2.5) or Osteoporotic (T-score at or below -2.5). LIMITATIONS AND MODIFICATION: None. FRACTURE RISK (FRAX SCORE): The ten year probability of (%): Major Osteoporotic Fracture: [NA] Hip Fracture: [NA] IMPRESSION: 1. Osteopenia (Low bone mass). 2. Baseline examination. 3. See below National Osteoporosis Foundation guidelines on when to potentially initiate pharmacologic therapy. Based on the National Osteoporosis Foundation Guidelines, pharmacologic treatment should be initiated in any of the following, unless clinical conditions suggest otherwise: * Any patient with prior fragility fracture of the hip or vertebrae. A spine fracture indicates 5X risk for subsequent spine fracture and 2X risk for subsequent hip fracture. * Osteoporosis (T-score <-2.5). * Postmenopausal women and men age 50 and older with low bone mass/osteopenia (T-score between -1.0 and -2.5) by DXA and 10-year major osteoporotic fracture greater than 20% or a 10-year probability of hip fracture greater than 3%. These fracture risks are supplied above in the FRAX score, if applicable. * Clinician judgement and/or patient preferences may indicate treatment for people with 10-year fracture probabilities above or below these levels. Dictated by: Dictated on workstation # [id number]
== END ==
LOC: RAD 10:00
PROVIDERS: ATTEND Internal Medicine Hematology & Oncology
DX: Z13.820 Encounter for screening for osteoporosis (principal); M85.89 Other specified disorders of bone density and structure, multiple sites; C50.219 Malignant neoplasm of upper-inner quadrant of unspecified female breast; Z79.811 Long term (current) use of aromatase inhibitors; Z78.0 Asymptomatic menopausal state
CPT/HCPCS: 77080

== ENCOUNTER → 2020-10-04 | Outpatient (CLI) | payer MEDICARE, OTHER ==
[~2020-10-04] MED LIST changes: +CATHETER FLUSH 10 ML SYR IV PRN; +HOLD METFORMIN - RECEIVED CONTRAST 20 ML VIAL IV SCH; +IOHEXOL 350 MG/ML 100 ML (OMNIPAQUE 350) VIAL IV ONE; +NS 100 ML (IVPB) BAG IV ONE
--- NOTE | 2020-10-04 13:31 | Diagnostic Imaging Report ---
PROCEDURE: CT abdomen and pelvis with contrast. TECHNIQUE: Multiple contiguous axial images were obtained through the abdomen and pelvis after administration of intravenous contrast. Auto Exposure Controls were utilized during the CT exam to meet ALARA standards for radiation dose reduction. All CT scans use one or more of the following dose optimizing techniques: automated exposure control, MA and/or KvP adjustment based on patient size and exam type or iterative reconstruction. INDICATION: Intermittent nausea and vomiting for two weeks. Patient does have a history of breast carcinoma. COMPARISON: Correlation is made with prior CT abdomen study from 09/21/2020. FINDINGS: Lung bases are clear. Numerous large low-attenuation masses throughout the liver are again noted, consistent with cysts. No biliary ductal dilatation is seen. The gallbladder is unremarkable. Pancreas and spleen are unremarkable apart from a low-density lesion in the spleen, stable. No adrenal mass is identified. Kidneys appear stable. There is a nonobstructing calculus in the left kidney, unchanged. There is some mild dilatation of the right ureter. There is a calcific density in the mid right pelvis measuring 5 mm in size which may be located within the right ureter. Distal to this near the UVJ, there is an additional calcification measuring 4 mm. This could represent a distal ureteric calculus as well. No bladder calculi are seen. Aorta is nonaneurysmal. No central retroperitoneal or mesenteric lymphadenopathy is seen. Large midline ventral hernia is again noted containing portions of the transverse colon. There is some low attenuation along the left lateral aspect which has the appearance of fluid. No bowel wall thickening or evidence of strangulation is seen. There is no bowel obstruction. Intra-abdominal bowel loops are normal in caliber and without evidence of free air or fluid collection. Bladder and uterus are unremarkable. No pelvic or abdominal lymphadenopathy is seen. IMPRESSION: 1. Stable hepatic cysts. 2. Nonobstructing left renal calculus. There are questionable calculi in the distal right ureter, as described, producing [id number] hydroureteronephrosis. 3. Midline ventral hernia containing portions of the transverse colon. There also appears to be fluid within the hernia sac. No bowel obstruction is seen. Dictated by: Dictated on workstation # [id number]
--- NOTE | 2020-10-04 13:46 | Diagnostic Imaging Report ---
EXAMINATION: US Thyroid. TECHNIQUE: Multiple real-time grayscale images were obtained of the thyroid in various projections. HISTORY: Thyroid nodule evaluation. COMPARISON: CT chest 09/21/2020. FINDINGS: The right lobe of the thyroid measures 7.2 x 3.1 x 3.4 cm. There is a 2.6 cm mixed solid and cystic, isoechoic, wider than tall nodule with indistinct margins. The left lobe of the thyroid measures 6.8 x 2.5 x 2.5 cm. Multiple left thyroid nodules. The largest is a 1.5 cm mixed solid and cystic, isoechoic, wider than tall nodule with indistinct margins. The isthmus is normal and measures 0.4 cm. No suspicious adenopathy within the visualized neck. IMPRESSION: 1. A 2.6 cm mixed solid and cystic right thyroid nodule, TI-RADS 2. 2. A 1.5 cm mixed solid and cystic left thyroid nodule, TI-RADS 2. 3. Additional subcentimeter left thyroid nodules. TIRADS 1: Benign No FNA or follow-up required TIRADS 2: Not Suspicious No FNA or follow-up required TIRADS 3: Mildly Suspicious FNA if ? 2.5 cm Follow if ? 1.5 cm (At 1, 3 and 5 years from initial scan) TIRADS 4: Moderately Suspicious FNA if ? 1.5 cm Follow if ? 1 cm (At 1, 2, 3 and 5 years from initial scan) TIRADS 5: Highly Suspicious FNA if ? 1 cm Follow if ? 0.5 cm (Annually for 5 years from initial scan) Dictated by: Dictated on workstation # [id number]
== END ==
LOC: RAD 11:15
PROVIDERS: ATTEND Internal Medicine Hematology & Oncology
DX: C44.501 Unspecified malignant neoplasm of skin of breast (principal); E04.2 Nontoxic multinodular goiter; K76.89 Other specified diseases of liver; N20.0 Calculus of kidney; K43.9 Ventral hernia without obstruction or gangrene; R93.89 Abnormal findings on diagnostic imaging of other specified body structures
CPT/HCPCS: 74177; 76536

== ENCOUNTER 2020-10-13 09:32 | Outpatient (RCR) | payer MEDICARE, OTHER ==
[~2020-10-13 09:32] MED LIST changes: -CATHETER FLUSH 10 ML SYR IV PRN; -HOLD METFORMIN - RECEIVED CONTRAST 20 ML VIAL IV SCH; -IOHEXOL 350 MG/ML 100 ML (OMNIPAQUE 350) VIAL IV ONE; -NS 100 ML (IVPB) BAG IV ONE
[2020-10-13 09:40] LABS: BASOPHILS % (AUTO) 0 % (0-10); EOSINOPHILS # (AUTO) 0.2 10^3/uL (0.0-0.3); EOSINOPHILS % (AUTO) 3 % (0-10); HEMATOCRIT 45 % (35-52); LYMPHOCYTES # (AUTO) 1.9 10^3/uL (1.0-4.0); LYMPHOCYTES % (AUTO) 26 % (12-44); MEAN CORPUSCULAR HEMOGLOBIN 29 pg (25-34); MEAN CORPUSCULAR HGB CONC 32 g/dL (32-36); MEAN CORPUSCULAR VOLUME 93 fL (80-99); MEAN PLATELET VOLUME 9.5 fL (9.0-12.2); MONOCYTES # (AUTO) 0.5 10^3/uL (0.0-1.0); MONOCYTES % (AUTO) 7 % (0-12); NEUTROPHILS # (AUTO) 4.8 10^3/uL (1.8-7.8); NEUTROPHILS % (AUTO) 64 % (42-75); PLATELET COUNT 234 10^3/uL (130-400); WHITE BLOOD COUNT 7.4 10^3/uL (4.3-11.0)
[2020-10-13 10:01] LABS: ALANINE AMINOTRANSFERASE 18 U/L (0-55); ALKALINE PHOSPHATASE 123 U/L (40-136); BILIRUBIN,TOTAL 0.5 MG/DL (0.1-1.0); BUN/CREATININE RATIO 13; CALCIUM 10.1 MG/DL (8.5-10.1); CARBON DIOXIDE 26 MMOL/L (21-32); CHLORIDE 110 MMOL/L (98-107); GFR ESTIMATED > 60; GLUCOSE 97 MG/DL (70-105); POTASSIUM 4.1 MMOL/L (3.6-5.0); SODIUM 144 MMOL/L (135-145); TOTAL PROTEIN 7.7 GM/DL (6.4-8.2)
[2020-10-20] MEDS ORDERED: EXEM25TA4 PO (13:16)
[2020-10-20] MEDS ORDERED: RIVA20TA PO (13:16)
[2020-10-26] MEDS ORDERED: NITR-65 PO (09:44)
[2020-10-26] MEDS ORDERED: TMSL.4C PO (09:44)
[2020-10-26] MEDS ORDERED: PHEN-640 PO (09:44)
[2020-10-26] MEDS ORDERED: TRAM50TA3 PO (09:44)
== END 2021-01-11 | disposition home or self-care (01) ==
LOC: ONC 09:32
PROVIDERS: ATTEND Internal Medicine Hematology & Oncology
DX: C50.211 Malignant neoplasm of upper-inner quadrant of right female breast (principal); Z98.890 Other specified postprocedural states; Z79.811 Long term (current) use of aromatase inhibitors
CPT/HCPCS: 80053; 85025; G0463; 99213

== ENCOUNTER → 2020-10-18 | Outpatient (CLI) | payer MEDICARE, OTHER ==
[~2020-10-18] MED LIST changes: +EXEM25TA4 PO; +RIVA20TA PO
--- NOTE | 2020-10-18 16:27 | Diagnostic Imaging Report ---
EXAMINATION: Supine abdomen at 3:57 PM INDICATION: Left nephrolithiasis. The prior abdomen exam of 07/31/2019 noted calculi overlying both renal contours. The recent CT abdomen/pelvis exam performed on 10/04/2020 did note a nonobstructive calculus involving the left kidney. There is also a question of a small 4.7 mm calculus in the distal right ureter. On this exam, the calculus overlying the left kidney seen previously is again evident. The calcifications overlying the right kidney noted on the 2019 exam are not visualized. The suspected obstructive calculus in the distal right ureter is also difficult to appreciate on this exam. However, there is a 4 mm calcific density along the inferior margin of the right sacroiliac joint. This finding was also present on the prior exam in 2019 and does not seem to have changed significantly. Whether this corresponds to the calculus seen on the recent CT abdomen/pelvis exam is not certain. But the fact that this finding has not changed over a greater than one-year period would suggest that it is not related to a ureteral stone. There are a few dense calculi in the left adnexa. In reviewing the CT exam there did appear to be a few calcifications in this area. The largest of these calcifications measured 1.3 cm. These calcifications seem to be associated with the left ovary. IMPRESSION: 1. There is still a nonobstructive calculus within the left kidney. 2. The small calcific density along the inferior margin of the right sacroiliac joint is of uncertain etiology but unlikely to be related to an subacute obstructive ureteral stone. Clinical follow-up is recommended. Dictated by: Dictated on workstation # [id number]
== END ==
LOC: RAD 15:38
PROVIDERS: ATTEND Urology
DX: N20.0 Calculus of kidney (principal); N28.89 Other specified disorders of kidney and ureter
CPT/HCPCS: 74018

== ENCOUNTER 2020-10-22 05:33 | Outpatient (RCR) | payer MEDICARE, OTHER ==
[~2020-10-22] VITALS: Ht 177.8 cm; Wt 118.2 kg
== END 2020-10-22 09:34 | disposition home or self-care (01) ==
LOC: PREOP 05:33
PROVIDERS: ATTEND Urology
DX: Z01.812 Encounter for preprocedural laboratory examination (principal); N20.1 Calculus of ureter; Z20.822 Contact with and (suspected) exposure to COVID-19
CPT/HCPCS: 87635

== ENCOUNTER 2020-10-26 06:13 | Day surgery (SDC) | payer MEDICARE, OTHER ==
[2020-10-26] VITALS (10 sets, daily range): BP systolic 126–152; BP diastolic 77–98
[~2020-10-26] VITALS: Ht 177.8 cm; Wt 118.2 kg
[2020-10-26] MEDS ORDERED: cefTRIAXone FOR IV USE 1,000 MG in WATER (STERILE) FOR INJECTION 10 ML IV ONE (06:30)
[2020-10-26] MEDS ORDERED: LACTATED RINGERS 1,000 ML IV PRN (06:30)
--- NOTE | 2020-10-26 07:09 | Progress Note-Pre Operative ---
Pre-Operative Progress Note H&P Reviewed The H&P was reviewed, patient examined and no changes noted. Date Seen by Provider: Oct 26, 2020 Time Seen by Provider: 07:08 Date H&P Reviewed: Oct 26, 2020 Time H&P Reviewed: 07:08 Pre-Operative Diagnosis: RT DISTAL URETERAL STONE ALFREDO AKERS MD Oct 26, 2020 07:09
[2020-10-26] MEDS ORDERED: LIDOCAINE PF 2% 5 ML (XYLOCAINE) VIAL ONE (07:12)
[2020-10-26] MEDS ORDERED: SEVOFLURANE (ULTANE) 15 ML INHAL SOLN ONE ×3 (07:12→07:54)
[2020-10-26] MEDS ORDERED: proPOfol 200 MG/20 ML (DIPRIVAN) VIAL IV ONE (07:12)
[2020-10-26] MEDS ORDERED: fentaNYL INJECTION 100 MCG/2 ML AMP ONE (07:12)
[2020-10-26] MEDS ORDERED: ONDANSETRON 4 MG/2 ML (SDV) Z0FRAN ONE ×2 (07:12)
[2020-10-26] MEDS ORDERED: MIDAZOLAM 2 MG/2 ML (VERSED) VIAL ONE (07:13)
[2020-10-26] MEDS ORDERED: FAMOTIDINE 20MG/2ML IV (PEPCID) ONE (07:13)
[2020-10-26] MEDS ORDERED: ONDANSETRON 4 MG/2 ML (SDV) Z0FRAN IV ONE (07:15)
[2020-10-26] MEDS ORDERED: FAMOTIDINE 20MG/2ML IV (PEPCID) IV ONE (07:15)
[2020-10-26] MEDS ORDERED: FUROSEMIDE 40 MG/4 ML INJ (LASIX) ONE (07:16)
[2020-10-26] MEDS ORDERED: KETOROLAC 30 MG/ML VIAL ONE (07:16)
--- NOTE | 2020-10-26 07:20 | Progress Note-Post Operative ---
Post-Operative Progess Note Surgeon (s)/Commercial Engineer (s) Surgeon ALFREDO AKERS MD Commercial Engineer: NONE Pre-Operative Diagnosis RT DISTAL URETERAL STONE Post-Operative Diagnosis SAME Procedure & Operative Findings Date of Procedure 10/26/20 Procedure Performed/Findings CYSTOSCOPY, RT URETEROSCOPY WITH STONE LITHOTRIPSY Anesthesia Type GENERAL Estimated Blood Loss Estimated blood loss (mL): NONE Specimens/Packing Specimens Removed NONE Packing: NONE ALFREDO AKERS MD Oct 26, 2020 07:20
--- NOTE | 2020-10-26 07:21 | Discharge Inst-Urology ---
Discharge Inst-Urology Reconcile Patient Problems Problems Reviewed?: Yes Final Diagnosis RT DISTAL URETERAL STONE Patient Instructions/Follow Up Plan/Assessment/Instructions Please make appointment to been seen in office in 2 weeks. In 48 hours, if no bleeding, may resume Xarelto Increase oral fluids for 48 hours and then as needed. Diet and Activity as tolerated. If questions or concerns contact your physician Or seek help at emergency department. ALFREDO AKERS MD Oct 26, 2020 07:21
--- NOTE | 2020-10-26 07:28 | Diagnostic Imaging Report ---
INDICATION: Nephrolithiasis KUB 6:51 AM There is a 4 mm calculus projecting over the midportion of left kidney. There is a 3.5 mm opacity projecting over the right ureter just below the pelvic inlet. Both of these appear unchanged from 10/18/2020. IMPRESSION: Stable left nephrolithiasis and right ureterolithiasis. Dictated by: Dictated on workstation # [id number]
[2020-10-26] MEDS ORDERED: morphine INJ 10 MG/ML 1ML (SYR OR VIAL) IVP ONE (08:30)
[2020-10-26] MEDS ORDERED: ONDANSETRON 4 MG/2 ML (SDV) Z0FRAN IVP PRN (08:30)
[2020-10-26] MEDS ORDERED: morphine INJ 10 MG/ML 1ML (SYR OR VIAL) ONE (08:34)
[2020-10-26] MEDS ORDERED: TMSL.4C PO (09:44)
[2020-10-26] MEDS ORDERED: PHEN-640 PO (09:44)
[2020-10-26] MEDS ORDERED: NITR-65 PO (09:44)
[2020-10-26] MEDS ORDERED: TRAM50TA3 PO (09:44)
--- NOTE | 2020-10-26 12:52 | Anesthesia-General Post-Op ---
General Patient Condition Mental Status/LOC: Same as Preop Cardiovascular: Satisfactory Nausea/Vomiting: Absent Respiratory: Satisfactory Pain: Controlled Complications: Absent Post Op Complications Complications None Follow Up Care/Instructions Patient Instructions None needed. Anesthesia/Patient Condition Patient Condition Patient was seen this morning after the procedure and she was doing well, no complaints, stable vital signs, no apparent adverse anesthesia problems. VANCE MAGAÑA DO Oct 26, 2020 12:52
--- NOTE | 2020-10-26 13:00 | OPERATIVE REPORT ---
DATE OF SERVICE: 10/26/2020 PREOPERATIVE DIAGNOSIS: Right distal ureteral stone. POSTOPERATIVE DIAGNOSIS: Right distal ureteral stone. OPERATION PERFORMED: Right ureteroscopy with stone lithotripsy. SURGEON: Delroy Akers MD ANESTHESIA: General. COMPLICATIONS: None. DESCRIPTION OF PROCEDURE: Under satisfactory general anesthesia, the patient in lithotomy position, genitalia were prepped and draped in the usual sterile fashion. Cystoscope was introduced in the bladder. Examination of the bladder was essentially normal except for a sluggish efflux on the right side. Using the fore oblique lens, I dilated the right ureteral orifice intramural portion to accommodate a 6.9 Swedish semi-rigid ureteroscope. Stone was visualized at the described place by x-ray. It was stuck and impacted into the wall of the ureter causing quite a bit of edema and swelling. I was able to completely fragment the stone with the lithoclast and octavia one fragment proximally and broke it up completely. There were no more fragments of stone proximally or distally. Most of the fragments flew down into the bladder. I removed the ureteroscope, reinserted the cystoscope, emptied the bladder. The patient tolerated the procedure and anesthesia well and was sent to recovery room in stable condition. Job ID: [id number] DocumentID: [id number] Dictated Date: 10/26/2020 08:22:22 [place] Worker Date: 10/26/2020 13:00:05 Dictated By: DELROY [facility]ERS [facility]
== END 2020-10-26 10:20 | disposition home or self-care (01) ==
LOC: SDC 06:13
PROVIDERS: ATTEND Urology
DX: N20.1 Calculus of ureter (principal); M19.90 Unspecified osteoarthritis, unspecified site; E66.9 Obesity, unspecified; Z68.37 Body mass index [BMI] 37.0-37.9, adult; Z79.899 Other long term (current) drug therapy; Z88.1 Allergy status to other antibiotic agents; Z85.3 Personal history of malignant neoplasm of breast
CPT/HCPCS: 74018; 76000; 87081

== ENCOUNTER → 2020-11-09 | Outpatient (CLI) | payer MEDICARE, OTHER ==
[~2020-11-09] MED LIST changes: +TRAM50TA3 PO
--- NOTE | 2020-11-09 16:29 | Diagnostic Imaging Report ---
INDICATION: Renal calculus. COMPARISON: 10/26/2020. FINDINGS: The 4 mm left kidney stone is unchanged. Some pelvic constipation is similar to the prior exam. The right pelvic stone present on the prior exam is not clearly seen but could be obscured by dense stool. IMPRESSION: The left renal calculus is unchanged. Rectosigmoid constipation is redemonstrated. Dictated by: Dictated on workstation # [id number]
== END ==
LOC: RAD 13:35
PROVIDERS: ATTEND Urology
DX: N20.0 Calculus of kidney (principal); K59.09 Other constipation
CPT/HCPCS: 74018

== ENCOUNTER 2021-01-12 12:50 | Outpatient (RCR) | payer MEDICARE, OTHER ==
[2021-01-12 12:58] LABS: BASOPHILS % (AUTO) 1 % (0-10); EOSINOPHILS # (AUTO) 0.2 10^3/uL (0.0-0.3); EOSINOPHILS % (AUTO) 3 % (0-10); HEMATOCRIT 45 % (35-52); HEMOGLOBIN 14.3 g/dL (11.5-16.0); LYMPHOCYTES # (AUTO) 2.2 10^3/uL (1.0-4.0); LYMPHOCYTES % (AUTO) 33 % (12-44); MEAN CORPUSCULAR HEMOGLOBIN 30 pg (25-34); MEAN CORPUSCULAR HGB CONC 32 g/dL (32-36); MEAN CORPUSCULAR VOLUME 92 fL (80-99); MEAN PLATELET VOLUME 9.7 fL (9.0-12.2); MONOCYTES # (AUTO) 0.6 10^3/uL (0.0-1.0); MONOCYTES % (AUTO) 9 % (0-12); NEUTROPHILS # (AUTO) 3.7 10^3/uL (1.8-7.8); NEUTROPHILS % (AUTO) 55 % (42-75); PLATELET COUNT 221 10^3/uL (130-400); WHITE BLOOD COUNT 6.6 10^3/uL (4.3-11.0)
[2021-01-12 13:17] LABS: ALANINE AMINOTRANSFERASE 20 U/L (0-55); ALKALINE PHOSPHATASE 124 U/L (40-136); BILIRUBIN,TOTAL 0.6 MG/DL (0.1-1.0); BUN/CREATININE RATIO 12; CALCIUM 9.2 MG/DL (8.5-10.1); CARBON DIOXIDE 24 MMOL/L (21-32); CHLORIDE 108 MMOL/L (98-107); CREATININE SERUM 0.75 MG/DL (0.60-1.30); GFR ESTIMATED > 60; GLUCOSE 80 MG/DL (70-105); POTASSIUM 4.1 MMOL/L (3.6-5.0); SODIUM 144 MMOL/L (135-145); TOTAL PROTEIN 7.3 GM/DL (6.4-8.2)
== END 2021-04-12 | disposition home or self-care (01) ==
LOC: ONC 12:50
PROVIDERS: ATTEND Internal Medicine Hematology & Oncology
DX: C50.211 Malignant neoplasm of upper-inner quadrant of right female breast (principal); Z98.890 Other specified postprocedural states; Z79.811 Long term (current) use of aromatase inhibitors; Z17.0 Estrogen receptor positive status [ER+]; Z92.21 Personal history of antineoplastic chemotherapy; Z79.891 Long term (current) use of opiate analgesic; Z79.899 Other long term (current) drug therapy
CPT/HCPCS: 80053; 82306; 85025; 96523; G0463

== ENCOUNTER 2021-04-13 12:49 | Outpatient (RCR) | payer MEDICARE, OTHER ==
[2021-04-13 13:15] LABS: BASOPHILS % (AUTO) 1 % (0-10); EOSINOPHILS # (AUTO) 0.2 10^3/uL (0.0-0.3); EOSINOPHILS % (AUTO) 3 % (0-10); HEMATOCRIT 42 % (35-52); HEMOGLOBIN 13.5 g/dL (11.5-16.0); LYMPHOCYTES # (AUTO) 1.9 10^3/uL (1.0-4.0); LYMPHOCYTES % (AUTO) 31 % (12-44); MEAN CORPUSCULAR HEMOGLOBIN 29 pg (25-34); MEAN CORPUSCULAR HGB CONC 32 g/dL (32-36); MEAN CORPUSCULAR VOLUME 91 fL (80-99); MONOCYTES # (AUTO) 0.5 10^3/uL (0.0-1.0); MONOCYTES % (AUTO) 7 % (0-12); NEUTROPHILS # (AUTO) 3.7 10^3/uL (1.8-7.8); NEUTROPHILS % (AUTO) 58 % (42-75); PLATELET COUNT 192 10^3/uL (130-400); WHITE BLOOD COUNT 6.2 10^3/uL (4.3-11.0)
[2021-04-13 13:45] LABS: ALANINE AMINOTRANSFERASE 23 U/L (0-55); ALBUMIN 3.7 GM/DL (3.2-4.5); ALKALINE PHOSPHATASE 118 U/L (40-136); BILIRUBIN,TOTAL 0.6 MG/DL (0.1-1.0); BUN/CREATININE RATIO 12; CALCIUM 9.7 MG/DL (8.5-10.1); CARBON DIOXIDE 26 MMOL/L (21-32); CHLORIDE 110 MMOL/L (98-107); CREATININE SERUM 0.74 MG/DL (0.60-1.30); GFR ESTIMATED > 60; GLUCOSE 87 MG/DL (70-105); POTASSIUM 4.1 MMOL/L (3.6-5.0); SODIUM 142 MMOL/L (135-145)
== END 2021-07-12 | disposition home or self-care (01) ==
LOC: ONC 12:49
PROVIDERS: ATTEND Internal Medicine Hematology & Oncology
DX: C50.211 Malignant neoplasm of upper-inner quadrant of right female breast (principal); Z79.811 Long term (current) use of aromatase inhibitors; Z92.21 Personal history of antineoplastic chemotherapy; Z92.3 Personal history of irradiation; Z79.899 Other long term (current) drug therapy; Z90.11 Acquired absence of right breast and nipple
CPT/HCPCS: 80053; 85025; G0463; 36591

== ENCOUNTER → 2021-04-15 | Outpatient (CLI) | payer MEDICARE, OTHER ==
--- NOTE | 2021-04-15 14:12 | Diagnostic Imaging Report ---
INDICATION: Right breast carcinoma. Correlation is made prior mammogram from 08/18/2020. 2-D and 3-D bilateral diagnostic mammography was performed with CAD. Postbiopsy changes in the upper outer right breast are noted. There is a chest wall port hub in the left axilla. There are scattered benign calcifications in both breasts. Benign-appearing nodular densities left breast are stable. No spiculated mass or malignant-appearing microcalcifications are seen. IMPRESSION: BI-RADS Category 2 No mammographic features suspicious for malignancy are identified. ACR BI-RADS Category 2: Benign findings. Result letter will be mailed to the patient. Note: At least 10% of breast cancer is not imaged by mammography. Dictated by: Dictated on workstation # [id number]
== END ==
LOC: RAD 13:45
PROVIDERS: ATTEND Nurse Practitioner Adult Health
DX: R92.8 Other abnormal and inconclusive findings on diagnostic imaging of breast (principal); Z85.3 Personal history of malignant neoplasm of breast
CPT/HCPCS: 77066; G0279; 77062

== ENCOUNTER → 2021-06-06 | Outpatient (CLI) | payer MEDICARE, OTHER | LOC: LABNPT 08:34 | PROVIDERS: ATTEND Surgery | DX: U07.1 COVID-19 (principal) | CPT/HCPCS: 87635 ==

== ENCOUNTER 2021-07-27 09:14 | Outpatient (RCR) | payer MEDICARE, OTHER | END 2021-10-07 | disposition home or self-care (01) | LOC: ONC 09:14 | PROVIDERS: ATTEND Internal Medicine Hematology & Oncology | DX: Z45.2 Encounter for adjustment and management of vascular access device (principal); C50.211 Malignant neoplasm of upper-inner quadrant of right female breast; E66.01 Morbid (severe) obesity due to excess calories; Z79.811 Long term (current) use of aromatase inhibitors; Z92.21 Personal history of antineoplastic chemotherapy; Z92.3 Personal history of irradiation; Z79.899 Other long term (current) drug therapy; Z90.11 Acquired absence of right breast and nipple; Z98.890 Other specified postprocedural states | CPT/HCPCS: 82306; G0463; 36591 ==

== ENCOUNTER 2022-05-22 05:37 | Outpatient (CLI) | payer MEDICARE, OTHER ==
[~2022-05-22] VITALS: Ht 177.8 cm; Wt 123.4 kg
[2022-05-22] MEDS ORDERED: IBUP-2185 PO (11:52)
[2022-05-22] MEDS ORDERED: CALC500T7 PO (11:52)
[2022-05-22] MEDS ORDERED: CALC-962 PO (11:52)
[2022-05-22] MEDS ORDERED: CHOL500044 PO (11:52)
== END 2022-05-22 12:07 | disposition home or self-care (01) ==
LOC: PREOP 05:37
PROVIDERS: ATTEND Surgery
DX: Z01.818 Encounter for other preprocedural examination (principal); I87.2 Venous insufficiency (chronic) (peripheral); Z85.3 Personal history of malignant neoplasm of breast

== ENCOUNTER 2022-05-24 07:56 | Day surgery (SDC) | payer MEDICARE, OTHER ==
[2022-05-24] VITALS (8 sets, daily range): BP systolic 109–139; BP diastolic 55–82
[~2022-05-24] VITALS: Ht 177.8 cm; Wt 123.4 kg
[~2022-05-24 07:56] MED LIST changes: +CALC-962 PO; +CALC500T7 PO; +CHOL500044 PO; +IBUP-2185 PO
[2022-05-24] MEDS ORDERED: LACTATED RINGERS 1,000 ML IV PRN (08:45)
[2022-05-24] MEDS ORDERED: ceFAZolin 2 GM IV Premixed 50 ML ONE (08:50)
--- NOTE | 2022-05-24 09:24 | Progress Note-Pre Operative ---
Pre-Operative Progress Note Date of Available H&P: May 17, 2022 Date H&P Reviewed: May 24, 2022 Time H&P Reviewed: 08:33 History & Physical: H&P Reviewed, Patient Examed, No changes noted Pre-Operative Diagnosis: Venous insufficiency JANEEN ORNELAS DO May 24, 2022 09:24
[2022-05-24] MEDS ORDERED: BUP/EPI 0.5% 1:200,000 (MARCAINE) 10ML VIAL IJ ONE (09:25)
[2022-05-24] MEDS ORDERED: fentaNYL INJ 100 MCG/2 ML AMP ONE (10:03)
[2022-05-24] MEDS ORDERED: PROPOFOL INJECTION 50 ML IV ONE (10:03)
[2022-05-24] MEDS ORDERED: MIDAZOLAM 2 MG/2 ML (VERSED) VIAL ONE (10:03)
[2022-05-24] MEDS ORDERED: ONDANSETRON 4 MG/2 ML (SDV) Z0FRAN ONE (10:13)
[2022-05-24] MEDS ORDERED: ceFAZolin 2 GM/50 ML (PRE-MIXED) IV ONE (11:00)
--- NOTE | 2022-05-24 11:46 | Progress Note-Post Operative ---
Post-Operative Progess Note Surgeon (s)/Baseball Winder (s) Surgeon JANEEN ORNELAS DO Baseball Winder: none Pre-Operative Diagnosis Venous insufficiency Post-Operative Diagnosis same Procedure & Operative Findings Date of Procedure 05/24/22 Procedure Performed/Findings PROCEDURE: Removal of port COMPLICATIONS: None. INDICATIONS: The patient is a 71 year-old female who had a port previously placed. Patient is ok to have port removed. The patient was explained risk and benefits of the procedure and wished to proceed with procedure. Consent was signed on the chart. PROCEDURE: The patient was taken to the operating suite and was prepped and draped in sterile fashion. A surgical pause was performed. Local anesthetic was infiltrated to the area around the port. A # 15 blade scalpel was used to make an incision, directly over previous incision. Cautery was used to dissect down to the port which was then grasped and then dissected around. The catheter was removed in its entirety. There was back bleeding from the mature tunnel, this was controlled with 3-0 Vicryl stitch to ligate the tunnel. The port was then able to be dissected out of the pocket and elevated. The wound was then irrigated with copious amounts of irrigation. Hemostasis had been achieved. The skin was then closed using 4-0 Vicryl, 3 interrupted subcuticular stitches. The area was then washed and dried and Skin Affix placed over the incision. The patient tolerated the procedure well without complication and was taken to recovery room in stable condition. Anesthesia Type IV sedation by FRENCH WEAVER Estimated Blood Loss Estimated blood loss (mL): scant Specimens/Packing Specimens Removed ramona-cath, not sent to JANEEN Russell DO May 24, 2022 11:46
--- NOTE | 2022-05-24 11:47 | Discharge Inst-Surgical ---
Discharge Inst-Surgical Depart Medication/Instructions New, Converted or Re-Newed RX: Other (use home meds) Patient Instructions Follow up Appt: Make appointment for 1 week. [phone] Instructions: May shower in 24 hours, no tub bath or soaking. Use incentive spirometer at home as directed. No Smoking Skin/Wound Care: May remove bandages in am. You need to leave the Dermabond on incision it will fall off on it's own. Symptoms to Report: Appetite Changes, Extremity Discoloration, Numbness/Tingling, Swelling Increased, Bleeding Excessive, Eyesight Changes, Pain Increased, Urine Color Change, Constipation(Persistent), Fever over 101 degree F, Pain/Pressure in chest, Urinating Difficulty, Cough Up/Vomit Blood, Heart Beat Irreg/Pounding, P ain/Pressure in jaw, Cramps in feet or legs, Lightheadedness, Pain/Pressure in shoulder, Diarrhea(Persistent), Memory Changes Suddenly, Questions/Concerns, Weight gain consecutive days, Dizziness/Fainting, Nausea/Vomiting, Shortness of Breath, Weight gain over 2 pounds If questions or concerns contact your physician Or seek help at emergency department. Activity Activity as Tolerated: Yes Activity Instructions: Avoid Stress to Incision Driving Instructions: You May Drive Diet Discharge Diet: No Restrictions Diet After 24 Hours: Clear Liquid if Nauseous If Any Problems/Questions/Issu: Contact Your Physician, Go to Emergency Room Skin/Wound Care Infection Signs and Symptoms: Increased Redness, Foul Odor of Wound, Increased Drainage, Skin Itchy or Has a Rash, Increased Swelling, Temperature Above 101 F Bathing Instructions: Shower Stitches/Truong/Dermabond Dis: Dermabond Ice Pack: Ice On and Off Site JANEEN ORNELAS DO May 24, 2022 11:47
--- NOTE | 2022-05-24 11:52 | Anesthesia-General Post-Op ---
MAC Patient Condition Mental Status/LOC: Same as Preop Cardiovascular: Satisfactory Nausea/Vomiting: Absent Respiratory: Satisfactory Pain: Controlled Complications: Absent Post Op Complications Complications None Follow Up Care/Instructions Patient Instructions None needed. Anesthesiology Discharge Order Discharge Order Patient is doing well, no complaints, stable vital signs, no apparent adverse anesthesia problems. No complications reported per nursing. YEISON RICO CRNA May 24, 2022 11:52
[2022-05-24] MEDS ORDERED: MEPERIDINE (DEMEROL) INJ 50 MG/ML IVP ONE (12:00)
[2022-05-24] MEDS ORDERED: morphine INJ 10 MG/ML 1ML (SYR OR VIAL) IVP ONE (12:00)
[2022-05-24] MEDS ORDERED: fentaNYL INJ 100 MCG/2 ML AMP IVP ONE (12:00)
[2022-05-24] MEDS ORDERED: ONDANSETRON 4 MG/2 ML (SDV) Z0FRAN IVP PRN (12:00)
== END 2022-05-24 13:20 ==
LOC: SDC 07:56
PROVIDERS: ATTEND Surgery
DX: I87.2 Venous insufficiency (chronic) (peripheral) (principal); E66.01 Morbid (severe) obesity due to excess calories; Z68.39 Body mass index [BMI] 39.0-39.9, adult; Z85.3 Personal history of malignant neoplasm of breast

== ENCOUNTER → 2023-05-21 | Outpatient (CLI) | payer MEDICARE, OTHER ==
--- NOTE | 2023-05-21 09:57 | Diagnostic Imaging Report ---
Indication: Routine screening. Comparison is made with prior mammogram from 04/15/2021 and 08/18/2020. 2-D and 3-D bilateral screening mammography was performed with CAD. The current study was also evaluated with a Computer Aided Detection (CAD) system. Both breasts are heterogeneously dense, limiting the sensitivity of mammography. A biopsy clip in the upper right breast again noted. There are small benign nodules left breast which appears stable. No spiculated mass or malignant appearing microcalcifications are seen. There are occasional benign calcifications. Axillae are unremarkable. IMPRESSION: BI-RADS Category 2 No mammographic features suspicious for malignancy are identified. ACR BI-RADS Category 2: Benign findings. Result letter will be mailed to the patient. Note: At least 10% of breast cancer is not imaged by mammography. Dictated by: Dictated on workstation # [id number]
== END ==
LOC: RAD 07:22
PROVIDERS: ATTEND Nurse Practitioner
DX: Z12.31 Encounter for screening mammogram for malignant neoplasm of breast (principal); C50.111 Malignant neoplasm of central portion of right female breast
CPT/HCPCS: 77063; 77067